=== PATIENT | female | born 1995 | race Caucasian/White ===

== ENCOUNTER 2016-05-08 10:18 | Observation (INO) | payer OTHER ==
[~2016-05-08] VITALS: Ht 180.3 cm; Wt 149.2 kg
[2016-05-08 10:41] LABS: BILIRUBIN,URINE NEGATIVE (NEGATIVE); KETONES,URINE NEGATIVE (NEGATIVE); LEUKOCYTE ESTERASE ,URINE NEGATIVE (NEGATIVE); NITRITE,URINE NEGATIVE (NEGATIVE); PH,URINE 7 (5-9); PROTEIN,URINE NEGATIVE (NEGATIVE); UROBILINOGEN,URINE NORMAL (NORMAL)
[2016-05-08] MEDS ORDERED: ONDANSETRON 4 MG/2 ML (SDV) Z0FRAN IVP ONE (10:45)
[2016-05-08] MEDS ORDERED: NS IV 1000 ML 1,000 ML IV SCH (10:45)
[2016-05-08 11:05] LABS: WBC,URINE RARE /HPF
[2016-05-08] MEDS ORDERED: fentaNYL INJECTION 100 MCG/2 ML AMP IVP ONE (11:30)
[2016-05-08 11:35] LABS: BASOPHILS % (AUTO) 0 % (0-10); EOSINOPHILS % (AUTO) 0 % (0-10); LYMPHOCYTES # (AUTO) 0.2 X 10^3 (1.0-4.0); LYMPHOCYTES % (AUTO) 3 % (12-44); MEAN CORPUSCULAR HEMOGLOBIN 27 PG (25-34); MEAN CORPUSCULAR HGB CONC 32 G/DL (32-36); MEAN CORPUSCULAR VOLUME 83 FL (80-99); MEAN PLATELET VOLUME 11.2 FL (7.4-10.4); MONOCYTES # (AUTO) 0.3 X 10^3 (0.0-1.0); MONOCYTES % (AUTO) 6 % (0-12); NEUTROPHILS % (AUTO) 91 % (42-75); PLATELET COUNT 166 10^3/uL (130-400); RED BLOOD COUNT 4.78 10^6/uL (4.35-5.85); RED CELL DISTRIBUTION WIDTH 14.3 % (10.0-14.5); WHITE BLOOD COUNT 5.5 10^3/uL (4.3-11.0)
--- NOTE | 2016-05-08 11:38 | ED GU-Female ---
General Chief Complaint: Abdominal/GI Problems Stated Complaint: LOWER RIGHT SIDE/BACK PAIN VOMITING CHILLS Nursing Triage Note: c/o right lower abd pain. Onset . Vomiting and diarrhea reported. Nursing Sepsis Screen: Possible Sepsis Risk Source: patient Exam Limitations: no limitations History of Present Illness Time seen by provider: 11:38 Initial Comments 21-year-old female patient presents to the emergency department complains of right lower quadrant pain beginning . Reports today has had vomiting, soft diarrhea stool, and chills. Patient is noted to have a fever of 101.2F in the emergency department. LMP 2 months ago. Mirena placed 2 months ago. NPO since 2099 yesterday. Timing/Duration: getting worse, other (4-5 days) Severity/Quality: sharp Location: RLQ Radiation: back (mild low back cramping) Activities at Onset: none Prior Genitourinary Problems: none Sexual [place] History: less than 2 months ago, single partner Modifying Factors: Worsens With Eating, Worsens With Movement, Worsens With Palpation Allergies and Home Medications Allergies Coded Allergies: No Known Drug Allergies (Unverified , 05/08/16) Home Medications Alprazolam 0.25 Mg Tablet, 0.25 MG PO TID PRN for ANXIETY, (Reported) Biotin 1,000 Mcg Tablet, 1,000 MCG PO DAILY, (Reported) Buspirone HCl 5 Mg Tablet, 10 MG PO HS, (Reported) TAKES 2 (5MG) TABLET Buspirone HCl 5 Mg Tablet, 5 MG PO DAILY, (Reported) Cholecalciferol (Vitamin D3) 1,000 Unit Tablet, 1,000 UNIT PO DAILY, (Reported) Ibuprofen 600 Mg Tablet, 600 MG PO Q6H PRN for PAIN, #40 Prescribed by: MIKAYLA ALEXIS on 05/09/16 0907 Levothyroxine Sodium 25 Mcg Tablet, 25 MCG PO HS, (Reported) Liraglutide 3 Mg/0.5 Ml Pen.injctr, 1.2 MG SC DAILY, (Reported) Magnesium Oxide 400 Mg Tablet, 400 MG PO DAILY, (Reported) Metronidazole 500 Mg Tablet, 500 MG PO BID for 5 Days, #10 Prescribed by: MIKAYLA ALEXIS on 05/09/16 09 Multivit with Calcium,Iron,Min 1 Each Tablet, 1 TAB PO DAILY, (Reported) Constitutional: chills, fever, malaise EENTM: no symptoms reported Respiratory: no symptoms reported Cardiovascular: no symptoms reported Gastrointestinal: RLQ, see HPI, abdominal pain (RLQ), No constipation, diarrhea (soft stools. ), No hematemesis, loss of appetite, No melena, nausea, vomiting Genitourinary: denies burning, denies discharge, denies dysuria, denies frequency, denies flank pain, denies hematuria, denies pain : No Musculoskeletal: see HPI, back pain Skin: no symptoms reported Psychiatric/Neurological: No Symptoms Reported All Other Systemes Reviewed Negative Unless Noted: Yes (Negative excepted noted.) Past [place]ask-Lfphzk Hx Patient Social History Recent Foreign Travel: No Contact w/Someone Who Travel: No Recent Infectious Disease Expo: No Surgeries HX Surgeries: No Respiratory Hx Respiratory Disorders: No Neurological Hx Neurological Disorders: No Reproductive System : No Hx Reproductive Disorders: Yes (PCOS) Female Reproductive Disorders: Polycystic Ovarian Dis Genitourinary Hx Genitourinary Disorders: No Gastrointestinal Hx Gastrointestinal Disorders: No Musculoskeletal Hx Musculoskeletal Disorders: No Endocrine Hx Endocrine Disorders: No Reviewed Nursing Assessment Reviewed/Agree w Nursing PMH: Yes Family Medical History Significant Family History: No Pertinent Family Hx Physical Exam Vital Signs Vital Sign - Last 12Hours 05/08/16 10:42 Temp 101.2 Pulse 112 Resp 18 B/P (MAP) 103/57 Pulse Ox 96 O2 Delivery Room Air Capillary Refill : Less Than 3 Seconds General Appearance: WD/WN, no apparent distress Cardiovascular: normal peripheral pulses, regular rate, rhythm, no murmur Respiratory: lungs clear, normal breath sounds, no respiratory distress Gastrointestinal: normal bowel sounds, soft, no organomegaly, No distended, guarding (RLQ), No rebound, tenderness (RLQ), No mass, other ((+) rovsing sign.) Back: normal inspection, no CVA tenderness Extremities: no pedal edema, normal capillary refill Neurologic/Psychiatric: alert, normal mood/affect, oriented x 3 Skin: normal color, warm/dry Focused Exam Lactic Acid Level Laboratory Tests Test 05/08/16 13:47 Lactic Acid Level 1.04 MMOL/L (0.50-2.00) Progress/Results/Core Measures Results/Orders Lab Results Laboratory Tests Test 05/08/16 10:03 05/08/16 11:28 05/08/16 13:47 05/08/16 15:15 Range/Units Urine Color YELLOW Urine Clarity SLIGHTLY CLOUDY Urine pH 7 5-9 Urine Specific [place] 1.005 L 1.016-1.022 Urine Protein NEGATIVE NEGATIVE Urine Glucose (UA) NEGATIVE NEGATIVE Urine Ketones NEGATIVE NEGATIVE Urine Nitrite NEGATIVE NEGATIVE Urine Bilirubin NEGATIVE NEGATIVE Urine Urobilinogen NORMAL NORMAL MG/DL Urine Leukocyte Esterase NEGATIVE NEGATIVE Urine RBC (Auto) NEGATIVE NEGATIVE Urine RBC NONE /HPF Urine WBC RARE /HPF Urine Squamous Epithelial Cells 2-5 /HPF Urine Crystals NONE /LPF Urine Bacteria TRACE /HPF Urine Casts NONE /LPF Urine Mucus NEGATIVE /LPF Urine Culture Indicated NO Urine Test NEGATIVE NEGATIVE White Blood Count 5.5 4.3-11.0 10^3/uL Red Blood Count 4.78 4.35-5.85 10^6/uL Hemoglobin 12.9 11.5-16.0 G/DL Hematocrit 40 35-52 % Mean Corpuscular Volume 83 80-99 FL Mean Corpuscular Hemoglobin 27 25-34 PG Mean Corpuscular Hemoglobin Concent 32 32-36 G/DL Red Cell Distribution Width 14.3 10.0-14.5 % Platelet Count 166 130-400 10^3/uL Mean Platelet Volume 11.2 H 7.4-10.4 FL Neutrophils (%) (Auto) 91 H 42-75 % Lymphocytes (%) (Auto) 3 L 12-44 % Monocytes (%) (Auto) 6 0-12 % Eosinophils (%) (Auto) 0 0-10 % Basophils (%) (Auto) 0 0-10 % Neutrophils # (Auto) 5.0 1.8-7.8 X 10^3 Lymphocytes # (Auto) 0.2 L 1.0-4.0 X 10^3 Monocytes # (Auto) 0.3 0.0-1.0 X 10^3 Eosinophils # (Auto) 0.0 0.0-0.3 10^3/uL Basophils # (Auto) 0.0 0.0-0.1 10^3/uL Neutrophils % (Manual) 87 % Lymphocytes % (Manual) 5 % Monocytes % (Manual) 5 % Eosinophils % (Manual) 0 % Basophils % (Manual) 0 % Band Neutrophils 3 % Blood Morphology Comment NORMAL Sodium Level 136 135-145 MMOL/L Potassium Level 3.7 3.6-5.0 MMOL/L Chloride Level 108 H 98-107 MMOL/L Carbon Dioxide Level 20 L 21-32 MMOL/L Anion Gap 8 5-14 MMOL/L Blood Urea Nitrogen 12 7-18 MG/DL Creatinine 0.91 0.60-1.30 MG/DL Estimat Glomerular Filtration Rate > 60 BUN/Creatinine Ratio 13 Glucose Level 107 H 70-105 MG/DL Calcium Level 8.7 8.5-10.1 MG/DL Total Bilirubin 0.6 0.1-1.0 MG/DL Aspartate Amino Transf (AST/SGOT) 34 5-34 U/L Alanine Aminotransferase (ALT/SGPT) 49 0-55 U/L Alkaline Phosphatase 59 40-136 U/L Total Protein 6.6 6.4-8.2 G/DL Albumin 4.0 3.2-4.5 G/DL Lactic Acid Level 1.04 0.50-2.00 MMOL/L Micro Results Microbiology 05/08/16 Genital Culture, Resulted Pending 05/08/16 Wet Prep - Final, Resulted 05/08/16 Influenza Types A,B Antigen (KINJAL) - Final, Complete My Orders Orders - LESLIE BLACK Ct Abd/Pelv W (Appendicitis) (05/08/16 11:50) Iohexol Injection (Omnipaque 350 Mg/Ml 1 (05/08/16 12:00) Sodium Chloride Flush (Catheter Flush Sy (05/08/16 12:00) Ns (Ivpb) (Sodium Chloride 0.9% Ivpb Bag (05/08/16 12:00) Ketorolac Injection (Toradol Injection) (05/08/16 13:25) Ns Iv 1000 Ml (Sodium Chloride 0.9%) (05/08/16 13:25) Wet Prep (05/08/16 13:25) Neisseria Gonorrhea Dna (05/08/16 13:25) Chlamydia Dna (05/08/16 13:25) Genital Culture (05/08/16 13:25) Lactic Acid Analyzer (05/08/16 13:27) Blood Culture (05/08/16 13:27) Influenza A And B Antigens (05/08/16 13:28) Chest Pa/Lat (2 View) (05/08/16 13:28) Fentanyl Injection (Sublimaze Injection (05/08/16 13:39) Us Non Ob Pelvis Comp/Transvag (05/08/16 13:25) Medications Given in ED Current Medications Medications Dose Ordered Sig/Graham Route Start Time Stop Time Status Last Admin Dose Admin Fentanyl Citrate 75 mcg ONCE ONCE IVP 05/08/16 11:30 05/08/16 11:31 DC 05/08/16 11:32 75 MCG Iohexol 100 ml ONCE ONCE IV 05/08/16 12:00 05/08/16 12:01 DC 05/08/16 12:13 100 ML Ondansetron HCl 8 mg ONCE ONCE IVP 05/08/16 10:45 05/08/16 10:46 DC 05/08/16 11:10 8 MG Sodium Chloride 100 ml ONCE ONCE IV 05/08/16 12:00 05/08/16 12:01 DC 05/08/16 12:13 80 ML Sodium Chloride 1,000 ml @ 0 mls/hr Q0M ONCE IV 05/08/16 13:25 05/08/16 13:28 DC 05/08/16 14:09 0 MLS/HR Vital Signs/I&O Vital Sign - Last 12Hours 05/08/16 05/08/16 05/08/16 05/08/16 10:42 11:32 13:44 13:52 Temp 101.2 101.2 101.2 101.2 Pulse 112 Resp 18 B/P (MAP) 103/57 Pulse Ox 96 O2 Delivery Room Air Blood Pressure Mean: 72 Diagnostic Imaging Diagonstic Imaging: CT Plain Films/CT/US/NM/MRI: abdomen, pelvis Comments FINDINGS: The uterus is 6.9 x 4.6 x 3.7 cm. The endometrial stripe is 1 cm in thickness. There is increased vascularity seen with color Doppler in the endometrium. The endometrial thickness is 1 cm which is within normal limits for the patient's age. However, the endometrium appears to be thinner in the lower body and lower uterine segment. IUD is seen in good position. In the right adnexa, there is a 3.4 x 2.9 x 2.4 from cm cystic lesion with a hypoechoic area occupying a small portion of it without internal vascularity likely related to a hemorrhagic cyst with a retracted clot. Surrounding ovarian tissue with overall measurements of 5 x 3.4 x 3.7 CM is seen with internal vascularity demonstrated in the surrounding ovarian tissue with arterial and venous waveforms demonstrated. The left ovary is obscured by bowel gas. IMPRESSION: 1. A 3.4 cm right adnexal lesion is probably a hemorrhagic cyst with an internal clot. 2. Increased vascularity within the endometrial cavity without obvious underlying lesion. The endometrium however appears thinner in the lower uterine segment and an underlying polyp, hyperplasia or endometrial carcinoma is not excluded. The findings were discussed with LITTLE Luna , at the time of dictation by Dr. Monsalve. Dictated on workstation # [id number] Reviewed: Reviewed by Me (radiology report reviewed by me. ) Diagonstic Imaging: Ultrasound Plain Films/CT/US/NM/MRI: pelvis Comments FINDINGS: The uterus is 6.9 x 4.6 x 3.7 cm. The endometrial stripe is 1 cm in thickness. There is increased vascularity seen with color Doppler in the endometrium. The endometrial thickness is 1 cm which is within normal limits for the patient's age. However, the endometrium appears to be thinner in the lower body and lower uterine segment. IUD is seen in good position. In the right adnexa, there is a 3.4 x 2.9 x 2.4 from cm cystic lesion with a hypoechoic area occupying a small portion of it without internal vascularity likely related to a hemorrhagic cyst with a retracted clot. Surrounding ovarian tissue with overall measurements of 5 x 3.4 x 3.7 CM is seen with internal vascularity demonstrated in the surrounding ovarian tissue with arterial and venous waveforms demonstrated. The left ovary is obscured by bowel gas. IMPRESSION: 1. A 3.4 cm right adnexal lesion is probably a hemorrhagic cyst with an internal clot. 2. Increased vascularity within the endometrial cavity without obvious underlying lesion. The endometrium however appears thinner in the lower uterine segment and an underlying polyp, hyperplasia or endometrial carcinoma is not excluded. The findings were discussed with LITTLE Luna , at the time of dictation by Dr. Monsalve. Dictated by: Dictated on workstation # [id number] Reviewed: Reviewed by Me (radiology report reviewed by me) Diagonstic Imaging: Xray Plain Films/CT/US/NM/MRI: chest Comments FINDINGS: Frontal and lateral views of the chest demonstrate normal heart size and pulmonary vascularity. The lungs are clear. There are no signs of infiltrate , pleural effusions or pneumothoraces. The visualized osseous structures show no acute abnormalities. IMPRESSION: 1. No acute process. No signs of infiltrates , effusions or pneumothoraces. Dictated by: Dictated on workstation # [id number] Reviewed: Reviewed by Me (radiology report reviewed by me) Departure Communication Time/Spoke to Admitting Phy: 15:[address] Mikayla alexis accepts patient to her service for repeat labs in the a.m., pain control, IV fluids, and further evaluation. Progress Notes Patient seen and evaluated. Patient reports continued right lower quadrant pain following IV fluids and pain medication. Patient does report nausea has improved. CT scan findings as well as laboratory findings were discussed with the patient and family. Patient is noted to have increase in temperature to 102.9F. Her for pelvic ultrasound, influenza, chest x-ray, and pelvic exam performed. On pelvic exam patient shows normal external genitalia. Cervix is friable with slight white discharge. IUD wires are noted. No masses or lesions noted. Tender right adnexa. Patient case was discussed with Dr. Mikayla yaness patient to her service for pain control, IV fluids, and further evaluation. Plan for admission was discussed with the patient and family. Patient does report findings on ultrasound of increased vascularity of the endometrium was seen on a previous ultrasound at [facility]. Patient states she was placed on hormones with improvement in vaginal bleeding in symptoms. Patient states he did not do a uterine biopsy as they felt that the hormones had resolved to the thickened endometrium. IUD was placed 2 months ago. Patient and family all voiced understanding and agree with plan for admission. Patient case discussed with Thiago Baez, he agrees with the plan of care. Impression Impression: Primary Impression: Intractable right lower quadrant abdominal pain Additional Impressions: Nausea and vomiting Qualified Codes: R11.2 - Nausea with vomiting, unspecified Hemorrhagic ovarian cyst Bacterial vaginosis Fever Qualified Codes: R50.9 - Fever, unspecified Disposition: ADMITTED INPATIENT Condition: Stable Decision to Admit Reason: Admit from ER (General) Decision to Admit/Date: May 08, 2016 Time/Decision to Admit Time: 15:39 Departure-Patient Inst. Referrals: ENRIKE SALAS DO (PCP/Family) Primary Care Physician Scripts Ibuprofen (Ibuprofen) 600 Mg Tablet 600 MG PO Q6H Y for PAIN, #40 TAB Prov: MIKAYLA ALEXIS DO 05/09/16 Metronidazole (Flagyl) 500 Mg Tablet 500 MG PO BID for 5 Days, #10 TAB Prov: MIKAYLA ALEXIS DO 05/09/16 LESLIE BLACK May 08, 2016 11:38
[2016-05-08 11:55] LABS: ALANINE AMINOTRANSFERASE 49 U/L (0-55); ANION GAP 8 MMOL/L (5-14); ASPARTATE AMINO TRANSFERASE 34 U/L (5-34); BILIRUBIN,TOTAL 0.6 MG/DL (0.1-1.0); BLOOD UREA NITROGEN 12 MG/DL (7-18); BUN/CREATININE RATIO 13; CALCIUM 8.7 MG/DL (8.5-10.1); CARBON DIOXIDE 20 MMOL/L (21-32); CHLORIDE 108 MMOL/L (98-107); CREATININE SERUM 0.91 MG/DL (0.60-1.30); GFR ESTIMATED > 60; GLUCOSE 107 MG/DL (70-105); POTASSIUM 3.7 MMOL/L (3.6-5.0); SODIUM 136 MMOL/L (135-145); TOTAL PROTEIN 6.6 G/DL (6.4-8.2)
[2016-05-08 11:56] LABS: BAND NEUTROPHILS 3 %; BASOPHILS % (MANUAL) 0 %; EOSINOPHILS % (MANUAL) 0 %; LYMPHOCYTES % (MANUAL) 5 %; NEUTROPHILS % (MANUAL) 87 %
[2016-05-08] MEDS ORDERED: NS 100 ML (IVPB) BAG IV ONE (12:00)
[2016-05-08] MEDS ORDERED: IOHEXOL 350 MG/ML 100 ML (OMNIPAQUE 350) VIAL IV ONE (12:00)
[2016-05-08] MEDS ORDERED: CATHETER FLUSH 10 ML SYR IV PRN (12:00)
--- NOTE | 2016-05-08 12:39 | Diagnostic Imaging Report ---
PROCEDURE: CT abdomen and pelvis with contrast, rule out appendicitis. TECHNIQUE: Multiple contiguous axial images were obtained through the abdomen and pelvis after the administration of intravenous contrast. INDICATION: Right lower quadrant pain began recently worsening in severity accompanied by fever and nausea. Tubular structure with a diameter of 5 mm seen best on axial image 111 is believed to reflect the normal appendix. No pericecal inflammatory process. The right adnexal cyst the larger more medial measuring a diameter of 2.8 cm and smaller more lateral cyst with a diameter of 1.8 cm present. There is an IUD device without evidence of uterine perforation. The left adnexa appear normal. Urinary bladder unremarkable. There is no ascites, abscess, hematoma or other acute fluid collection. There is no hydronephrosis. Ureters patent and unobstructed throughout their length. There is no bowel or biliary obstruction. Liver, gallbladder, spleen, adrenals and pancreas are unremarkable. Aortoiliac and mesenteric vessels patent and nonaneurysmal. IMPRESSION: Normal appendix believe identified right adnexal cyst with an indwelling IUD. No obstructive phenomena, abscess, ascites or focal inflammatory process identified. Dictated by: Dictated on workstation # [id number]
[2016-05-08] MEDS ORDERED: KETOROLAC 30 MG/ML VIAL IVP STA (13:25)
[2016-05-08] MEDS ORDERED: NS IV 1000 ML 1,000 ML IV ONE (13:25)
[2016-05-08] MEDS ORDERED: fentaNYL INJECTION 100 MCG/2 ML AMP IVP STA (13:39)
--- NOTE | 2016-05-08 14:57 | Diagnostic Imaging Report ---
INDICATION: Fever. Abdominal pain. COMPARISON: None FINDINGS: Frontal and lateral views of the chest demonstrate normal heart size and pulmonary vascularity. The lungs are clear. There are no signs of infiltrate, pleural effusions or pneumothoraces. The visualized osseous structures show no acute abnormalities. IMPRESSION: 1. No acute process. No signs of infiltrates, effusions or pneumothoraces. Dictated by: Dictated on workstation # [id number]
--- NOTE | 2016-05-08 15:22 | Diagnostic Imaging Report ---
EXAM: Transabdominal and transvaginal pelvic ultrasound. INDICATION: Pelvic pain. FINDINGS: The uterus is 6.9 x 4.6 x 3.7 cm. The endometrial stripe is 1 cm in thickness. There is increased vascularity seen with color Doppler in the endometrium. The endometrial thickness is 1 cm which is within normal limits for the patient's age. However, the endometrium appears to be thinner in the lower body and lower uterine segment. IUD is seen in good position. In the right adnexa, there is a 3.4 x 2.9 x 2.4 from cm cystic lesion with a hypoechoic area occupying a small portion of it without internal vascularity likely related to a hemorrhagic cyst with a retracted clot. Surrounding ovarian tissue with overall measurements of 5 x 3.4 x 3.7 CM is seen with internal vascularity demonstrated in the surrounding ovarian tissue with arterial and venous waveforms demonstrated. The left ovary is obscured by bowel gas. IMPRESSION: 1. A 3.4 cm right adnexal lesion is probably a hemorrhagic cyst with an internal clot. 2. Increased vascularity within the endometrial cavity without obvious underlying lesion. The endometrium however appears thinner in the lower uterine segment and an underlying polyp, hyperplasia or endometrial carcinoma is not excluded. The findings were discussed with LITTLE Luna, at the time of dictation by Dr. Monsalve. Dictated by: Dictated on workstation # [id number]
[2016-05-08] MEDS ORDERED: metroNIDAZOLE 500 MG (FLAGYL) TAB PO ONE (16:15)
[2016-05-08 17:05] VITALS: BP 126/80
--- NOTE | 2016-05-08 17:12 | History & Physicial ---
History of Present Illness History of Present Illness Reason for visit/HPI Right lower quadrant pain, fever Patient reports acute onset of pain starting . Now with vomiting and diarrhea and fever in ED of 101.2. US done to rule out appendicitis and found to have right ovarian cyst. Small but possibly hemorrhagic. (3x2 cm). Had IUD placed by Dr. Lyles [address]. LMP 2 months ago (no menses since placement of IUD). Vital Signs 05/08/16 05/08/16 10:42 13:52 Temp 101.2 Pulse 112 Resp 18 B/P (MAP) 103/57 Pulse Ox 96 O2 Delivery Room Air Laboratory Tests Test 05/08/16 10:03 05/08/16 11:28 05/08/16 13:47 05/08/16 15:15 Range/Units Urine Color YELLOW Urine Clarity SLIGHTLY CLOUDY Urine pH 7 5-9 Urine Specific [place] 1.005 L 1.016-1.022 Urine Protein NEGATIVE NEGATIVE Urine Glucose (UA) NEGATIVE NEGATIVE Urine Ketones NEGATIVE NEGATIVE Urine Nitrite NEGATIVE NEGATIVE Urine Bilirubin NEGATIVE NEGATIVE Urine Urobilinogen NORMAL NORMAL MG/DL Urine Leukocyte Esterase NEGATIVE NEGATIVE Urine RBC (Auto) NEGATIVE NEGATIVE Urine RBC NONE /HPF Urine WBC RARE /HPF Urine Squamous Epithelial Cells 2-5 /HPF Urine Crystals NONE /LPF Urine Bacteria TRACE /HPF Urine Casts NONE /LPF Urine Mucus NEGATIVE /LPF Urine Culture Indicated NO Urine Test NEGATIVE NEGATIVE White Blood Count 5.5 4.3-11.0 10^3/uL Red Blood Count 4.78 4.35-5.85 10^6/uL Hemoglobin 12.9 11.5-16.0 G/DL Hematocrit 40 35-52 % Mean Corpuscular Volume 83 80-99 FL Mean Corpuscular Hemoglobin 27 25-34 PG Mean Corpuscular Hemoglobin Concent 32 32-36 G/DL Red Cell Distribution Width 14.3 10.0-14.5 % Platelet Count 166 130-400 10^3/uL Mean Platelet Volume 11.2 H 7.4-10.4 FL Neutrophils (%) (Auto) 91 H 42-75 % Lymphocytes (%) (Auto) 3 L 12-44 % Monocytes (%) (Auto) 6 0-12 % Eosinophils (%) (Auto) 0 0-10 % Basophils (%) (Auto) 0 0-10 % Neutrophils # (Auto) 5.0 1.8-7.8 X 10^3 Lymphocytes # (Auto) 0.2 L 1.0-4.0 X 10^3 Monocytes # (Auto) 0.3 0.0-1.0 X 10^3 Eosinophils # (Auto) 0.0 0.0-0.3 10^3/uL Basophils # (Auto) 0.0 0.0-0.1 10^3/uL Neutrophils % (Manual) 87 % Lymphocytes % (Manual) 5 % Monocytes % (Manual) 5 % Eosinophils % (Manual) 0 % Basophils % (Manual) 0 % Band Neutrophils 3 % Blood Morphology Comment NORMAL Sodium Level 136 135-145 MMOL/L Potassium Level 3.7 3.6-5.0 MMOL/L Chloride Level 108 H 98-107 MMOL/L Carbon Dioxide Level 20 L 21-32 MMOL/L Anion Gap 8 5-14 MMOL/L Blood Urea Nitrogen 12 7-18 MG/DL Creatinine 0.91 0.60-1.30 MG/DL Estimat Glomerular Filtration Rate > 60 BUN/Creatinine Ratio 13 Glucose Level 107 H 70-105 MG/DL Calcium Level 8.7 8.5-10.1 MG/DL Total Bilirubin 0.6 0.1-1.0 MG/DL Aspartate Amino Transf (AST/SGOT) 34 5-34 U/L Alanine Aminotransferase (ALT/SGPT) 49 0-55 U/L Alkaline Phosphatase 59 40-136 U/L Total Protein 6.6 6.4-8.2 G/DL Albumin 4.0 3.2-4.5 G/DL Lactic Acid Level 1.04 0.50-2.00 MMOL/L Current Medications Medications Dose Ordered Sig/Graham Route Start Time Stop Time Status Last Admin Dose Admin Fentanyl Citrate 75 mcg ONCE ONCE IVP 05/08/16 11:30 05/08/16 11:31 DC 05/08/16 11:32 75 MCG Iohexol 100 ml ONCE ONCE IV 05/08/16 12:00 05/08/16 12:01 DC 05/08/16 12:13 100 ML Metronidazole 500 mg ONCE ONCE PO 05/08/16 16:15 05/08/16 16:16 DC 05/08/16 16:53 500 MG Ondansetron HCl 8 mg ONCE ONCE IVP 05/08/16 10:45 05/08/16 10:46 DC 05/08/16 11:10 8 MG Sodium Chloride 100 ml ONCE ONCE IV 05/08/16 12:00 05/08/16 12:01 DC 05/08/16 12:13 80 ML Sodium Chloride 1,000 ml @ 0 mls/hr Q0M ONCE IV 05/08/16 13:25 05/08/16 13:28 DC 05/08/16 14:09 0 MLS/HR NAME: [facility] REC#: [id number] PHYSICIAN: LESLIE BLACK CC: LC SANCHEZ; LESLIE BLACK Page 1 of 1 RADIOLOGY REPORT VIA [facility]. [place], [place] CC: LC SANCHEZ; LESLIE BLACK Page 1 of 1 RADIOLOGY REPORT INDICATION: Fever. Abdominal pain. COMPARISON: None FINDINGS: Frontal and lateral views of the chest demonstrate normal heart size and pulmonary vascularity. The lungs are clear. There are no signs of infiltrate, pleural effusions or pneumothoraces. The visualized osseous structures show no acute abnormalities. IMPRESSION: 1. No acute process. No signs of infiltrates, effusions or pneumothoraces. Dictated by: Dictated on workstation # [id number] Dict: 05/08/16 1455 Trans: 05/08/16 1700 [place] [id number] Interpreted by: LC SANCHEZ Electronically signed by:LC SANCHEZ 05/08/16 1700 Date of Exam: 05/08/16 US NON OB PELVIS COMP/TRANSVAG EXAM: Transabdominal and transvaginal pelvic ultrasound. INDICATION: Pelvic pain. FINDINGS: The uterus is 6.9 x 4.6 x 3.7 cm. The endometrial stripe is 1 cm in thickness. There is increased vascularity seen with color Doppler in the endometrium. The endometrial thickness is 1 cm which is within normal limits for the patient's age. However, the endometrium appears to be thinner in the lower body and lower uterine segment. IUD is seen in good position. In the right adnexa, there is a 3.4 x 2.9 x 2.4 from cm cystic lesion with a hypoechoic area occupying a small portion of it without internal vascularity likely related to a hemorrhagic cyst with a retracted clot. Surrounding ovarian tissue with overall measurements of 5 x 3.4 x 3.7 CM is seen with internal vascularity demonstrated in the surrounding ovarian tissue with arterial and venous waveforms demonstrated. The left ovary is obscured by bowel gas. IMPRESSION: 1. A 3.4 cm right adnexal lesion is probably a hemorrhagic cyst with an internal clot. 2. Increased vascularity within the endometrial cavity without obvious underlying lesion. The endometrium however appears thinner in the lower uterine segment and an underlying polyp, hyperplasia or endometrial carcinoma is not excluded. The findings were discussed with LITTLE Luna, at the time of dictation by Dr. Monsalve. Dictated by: Dictated on workstation # [id number] Dict: 05/08/16 1443 Trans: 05/08/16 1559 [facility] [id number] Interpreted by: AMANDA MONSALVE MD Electronically signed by:AMANDA MONSALVE MD 05/08/16 1559 NAME: [facility] REC#: [id number] PHYSICIAN: LESLIE BLACK CC: CORNEL JOHNSON; LESLIE BLACK Page 2 of 2 RADIOLOGY REPORT VIA [facility]. [place], [place] CC: CORNEL JOHNSON; LESLIE BLACK Page 1 of 1 RADIOLOGY REPORT Date of Exam: 05/08/16 CT ABD/PELV W (APPENDICITIS) PROCEDURE: CT abdomen and pelvis with contrast, rule out appendicitis. TECHNIQUE: Multiple contiguous axial images were obtained through the abdomen and pelvis after the administration of intravenous contrast. INDICATION: Right lower quadrant pain began recently worsening in severity accompanied by fever and nausea. Tubular structure with a diameter of 5 mm seen best on axial image 111 is believed to reflect the normal appendix. No pericecal inflammatory process. The right adnexal cyst the larger more medial measuring a diameter of 2.8 cm and smaller more lateral cyst with a diameter of 1.8 cm present. There is an IUD device without evidence of uterine perforation. The left adnexa appear normal. Urinary bladder unremarkable. There is no ascites, abscess, hematoma or other acute fluid collection. There is no hydronephrosis. Ureters patent and unobstructed throughout their length. There is no bowel or biliary obstruction. Liver, gallbladder, spleen, adrenals and pancreas are unremarkable. Aortoiliac and mesenteric vessels patent and nonaneurysmal. IMPRESSION: Normal appendix believe identified right adnexal cyst with an indwelling IUD. No obstructive phenomena, abscess, ascites or focal inflammatory process identified. Dictated by: Dictated on workstation # [id number] Dict: 05/08/16 1232 Trans: 05/08/16 1701 [place] [id number] Interpreted by: CORNEL JOHNSON Electronically signed by:CORNEL JOHNSON 05/08/16 1701 Date of Admission May 08, 2016 at 16:03 I consulted on this patient on 05/08/16 17:10 Attending Physician Derick Smith DO Admitting Physician Derick Smith DO Consult Allergies and Home Medications Allergies Coded Allergies: No Known Drug Allergies (Unverified , 05/08/16) Home Medications Biotin 1,000 Mcg Tablet, 1,000 MCG PO DAILY, (Reported) Cholecalciferol (Vitamin D3) 1,000 Unit Tablet, 1,000 UNIT PO DAILY, (Reported) Levothyroxine Sodium 25 Mcg Tablet, 25 MCG PO HS, (Reported) Multivit with Calcium,Iron,Min 1 Each Tablet, 1 TAB PO DAILY, (Reported) Past Avympbq-Grephp-Oinizx Hx Patient Social History Marrital Status: Number of Children: 0 Number of living children: 0 Alcohol Use: Denies Use Recreational Drug Use: No Smoking Status: Never a Smoker 2nd Hand Smoke Exposure: No Recent Foreign Travel: No Contact w/other who traveled: No Recent Hopitalizations: No Recent Infectious Disease Expo: No Surgeries HX Surgeries: No Respiratory Hx Respiratory Disorders: No Cardiovascular Hx Cardiovascular Disorders: No Neurological Hx Neurological Disorders: No Reproductive System : No Hx Reproductive Disorders: Yes (PCOS) Female Reproductive Disorders: Polycystic Ovarian Dis 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 (Mirena placed 01/26) Genitourinary Hx Genitourinary Disorders: No Gastrointestinal Hx Gastrointestinal Disorders: No Musculoskeletal Hx Musculoskeletal Disorders: No Endocrine Hx Endocrine Disorders: No HEENT HX ENT Disorders: No Cancer Hx Cancer: No Psychosocial Hx Psychiatric Problems: No Integumentary HX Skin/Integumentary Disorder: No Blood Transfusions Hx Blood Disorders: No Reviewed Nursing Assessment Reviewed/Agree w Nursing PMH: Yes Family Medical History Significant Family History: No Pertinent Family Hx Constitutional: no symptoms reported EENTM: no symptoms reported Respiratory: no symptoms reported Cardiovascular: no symptoms reported Gastrointestinal: RLQ, diarrhea (loose stool x 1), nausea, vomiting (earlier today) Genitourinary: no symptoms reported Musculoskeletal: no symptoms reported Skin: no symptoms reported Psychiatric/Neurological: No Symptoms Reported Physical Exam Vital Signs Capillary Refill : Less Than 3 Seconds General Appearance: No Apparent Distress Neck: Normal Inspection Respiratory: Lungs Clear, Normal Breath Sounds Cardiovascular: Regular Rate, Rhythm Gastrointestinal: Normal Bowel Sounds, Non Tender, Soft Genital/Rectal: Normal Genital Exam Back: No CVA Tenderness Assessment/Plan Admission Diagnosis 1. Right lower quadrant pain 2. Fever Suspect viral etiology with incidental ovulatory cyst. Monitor overnight. Rocephin and Toradol started in The ED and will continue to monitor. JESS ALEXIS DO May 08, 2016 17:12
[2016-05-08] MEDS: KETOROLAC 30 MG/ML VIAL IVP SCH ×2 (17:15→23:15)
[2016-05-08] MEDS ORDERED: ACETAMINOPHEN 500 MG TAB (TYLENOL) PO PRN ×2 (17:15→17:45)
[2016-05-08] MEDS ORDERED: ONDANSETRON 4 MG/2 ML (SDV) Z0FRAN IV PRN (17:30)
[2016-05-08] MEDS ORDERED: LIDOCAINE 1% INJ 20 ML (XYLOCAINE) VIAL INJ NR (17:30)
[2016-05-08] MEDS ORDERED: cefTRIAXone 1 GM (ROCEPHIN) VIAL IM NR (17:30)
[2016-05-08] MEDS: NS W/KCL 20 MEQ/L 1,000 ML IV SCH (17:43)
[2016-05-08] MEDS: DOXYCYCLINE 100 MG (VIBRAMYCIN) TABLET PO SCH (17:43)
[2016-05-08] MEDS ORDERED: PROMETHAZINE INJ 25 MG/ML (PHENERGAN) AMP IV PRN (17:45)
[2016-05-08] MEDS ORDERED: KETOROLAC 30 MG/ML VIAL IV PRN (17:45)
[2016-05-08] MEDS ORDERED: morphine INJ 4 MG/ML 1 ML (VIAL/SYRINGE) IV PRN (17:45)
[2016-05-08] MEDS ORDERED: cefTRIAXone 1 GM/NS 50 ML IVPB IV NR ×2 (17:45)
[2016-05-08] MEDS ORDERED: FLU TRIvalent (5 YOA+) 2016-17 (AFLURIA) 0.5 ML IM ONE (18:15)
[2016-05-08 19:15] VITALS: BP 109/69
[2016-05-08] MEDS: FAMOTIDINE 20MG/2ML IV (PEPCID) IV SCH (20:10)
[2016-05-08] MEDS: metroNIDAZOLE 500MG/100ML IVPB 100 ML IV SCH (21:19)
[2016-05-09] VITALS: BP 100/56
[2016-05-09] MEDS: NS W/KCL 20 MEQ/L 1,000 ML IV SCH ×2 (00:23→06:45)
[2016-05-09 04:00] VITALS: BP 136/65
[2016-05-09] MEDS: KETOROLAC 30 MG/ML VIAL IVP SCH (05:29)
[2016-05-09] MEDS: metroNIDAZOLE 500MG/100ML IVPB 100 ML IV SCH (05:29)
[2016-05-09 06:08] LABS: BASOPHILS % (AUTO) 1 % (0-10); EOSINOPHILS % (AUTO) 1 % (0-10); LYMPHOCYTES # (AUTO) 0.4 X 10^3 (1.0-4.0); LYMPHOCYTES % (AUTO) 25 % (12-44); MEAN CORPUSCULAR HEMOGLOBIN 27 PG (25-34); MEAN CORPUSCULAR HGB CONC 31 G/DL (32-36); MEAN CORPUSCULAR VOLUME 86 FL (80-99); MEAN PLATELET VOLUME 12.1 FL (7.4-10.4); MONOCYTES # (AUTO) 0.3 X 10^3 (0.0-1.0); MONOCYTES % (AUTO) 17 % (0-12); NEUTROPHILS # (AUTO) 0.9 X 10^3 (1.8-7.8); NEUTROPHILS % (AUTO) 56 % (42-75); PLATELET COUNT 105 10^3/uL (130-400); RED CELL DISTRIBUTION WIDTH 14.5 % (10.0-14.5); WHITE BLOOD COUNT 1.6 10^3/uL (4.3-11.0)
[2016-05-09] MEDS: DOXYCYCLINE 100 MG (VIBRAMYCIN) TABLET PO SCH (06:44)
[2016-05-09 06:45] LABS: ALANINE AMINOTRANSFERASE 37 U/L (0-55); ANION GAP 5 MMOL/L (5-14); ASPARTATE AMINO TRANSFERASE 28 U/L (5-34); BILIRUBIN,TOTAL 0.4 MG/DL (0.1-1.0); BLOOD UREA NITROGEN 13 MG/DL (7-18); BUN/CREATININE RATIO 16; CARBON DIOXIDE 19 MMOL/L (21-32); CHLORIDE 114 MMOL/L (98-107); CREATININE SERUM 0.82 MG/DL (0.60-1.30); GFR ESTIMATED > 60; GLUCOSE 103 MG/DL (70-105); POTASSIUM 3.9 MMOL/L (3.6-5.0); SODIUM 138 MMOL/L (135-145)
[2016-05-09 08:00] VITALS: BP 106/61
[2016-05-09] MEDS: FAMOTIDINE 20MG/2ML IV (PEPCID) IV SCH (08:18)
--- NOTE | 2016-05-09 08:34 | Progress Note-Standard ---
Standard Progress Note Progress Notes/Assess & Plan Progress/Assessment & Plan Feeling better. Afebrile Will dc home Vital Signs 05/09/16 04:00 Temp 98.6 Pulse 66 Resp 20 B/P (MAP) 136/65 Pulse Ox 96 O2 Delivery Room Air Laboratory Tests Test 05/08/16 10:03 05/08/16 11:28 05/08/16 13:47 05/08/16 15:15 Range/Units Urine Color YELLOW Urine Clarity SLIGHTLY CLOUDY Urine pH 7 5-9 Urine Specific [place] 1.005 L 1.016-1.022 Urine Protein NEGATIVE NEGATIVE Urine Glucose (UA) NEGATIVE NEGATIVE Urine Ketones NEGATIVE NEGATIVE Urine Nitrite NEGATIVE NEGATIVE Urine Bilirubin NEGATIVE NEGATIVE Urine Urobilinogen NORMAL NORMAL MG/DL Urine Leukocyte Esterase NEGATIVE NEGATIVE Urine RBC (Auto) NEGATIVE NEGATIVE Urine RBC NONE /HPF Urine WBC RARE /HPF Urine Squamous Epithelial Cells 2-5 /HPF Urine Crystals NONE /LPF Urine Bacteria TRACE /HPF Urine Casts NONE /LPF Urine Mucus NEGATIVE /LPF Urine Culture Indicated NO Urine Test NEGATIVE NEGATIVE White Blood Count 5.5 4.3-11.0 10^3/uL Red Blood Count 4.78 4.35-5.85 10^6/uL Hemoglobin 12.9 11.5-16.0 G/DL Hematocrit 40 35-52 % Mean Corpuscular Volume 83 80-99 FL Mean Corpuscular Hemoglobin 27 25-34 PG Mean Corpuscular Hemoglobin Concent 32 32-36 G/DL Red Cell Distribution Width 14.3 10.0-14.5 % Platelet Count 166 130-400 10^3/uL Mean Platelet Volume 11.2 H 7.4-10.4 FL Neutrophils (%) (Auto) 91 H 42-75 % Lymphocytes (%) (Auto) 3 L 12-44 % Monocytes (%) (Auto) 6 0-12 % Eosinophils (%) (Auto) 0 0-10 % Basophils (%) (Auto) 0 0-10 % Neutrophils # (Auto) 5.0 1.8-7.8 X 10^3 Lymphocytes # (Auto) 0.2 L 1.0-4.0 X 10^3 Monocytes # (Auto) 0.3 0.0-1.0 X 10^3 Eosinophils # (Auto) 0.0 0.0-0.3 10^3/uL Basophils # (Auto) 0.0 0.0-0.1 10^3/uL Neutrophils % (Manual) 87 % Lymphocytes % (Manual) 5 % Monocytes % (Manual) 5 % Eosinophils % (Manual) 0 % Basophils % (Manual) 0 % Band Neutrophils 3 % Blood Morphology Comment NORMAL Sodium Level 136 135-145 MMOL/L Potassium Level 3.7 3.6-5.0 MMOL/L Chloride Level 108 H 98-107 MMOL/L Carbon Dioxide Level 20 L 21-32 MMOL/L Anion Gap 8 5-14 MMOL/L Blood Urea Nitrogen 12 7-18 MG/DL Creatinine 0.91 0.60-1.30 MG/DL Estimat Glomerular Filtration Rate > 60 BUN/Creatinine Ratio 13 Glucose Level 107 H 70-105 MG/DL Calcium Level 8.7 8.5-10.1 MG/DL Total Bilirubin 0.6 0.1-1.0 MG/DL Aspartate Amino Transf (AST/SGOT) 34 5-34 U/L Alanine Aminotransferase (ALT/SGPT) 49 0-55 U/L Alkaline Phosphatase 59 40-136 U/L Total Protein 6.6 6.4-8.2 G/DL Albumin 4.0 3.2-4.5 G/DL Lactic Acid Level 1.04 0.50-2.00 MMOL/L Test 05/09/16 05:26 Range/Units White Blood Count 1.6 L 4.3-11.0 10^3/uL Red Blood Count 3.90 L 4.35-5.85 10^6/uL Hemoglobin 10.5 L 11.5-16.0 G/DL Hematocrit 34 L 35-52 % Mean Corpuscular Volume 86 80-99 FL Mean Corpuscular Hemoglobin 27 25-34 PG Mean Corpuscular Hemoglobin Concent 31 L 32-36 G/DL Red Cell Distribution Width 14.5 10.0-14.5 % Platelet Count 105 L 130-400 10^3/uL Mean Platelet Volume 12.1 H 7.4-10.4 FL Neutrophils (%) (Auto) 56 42-75 % Lymphocytes (%) (Auto) 25 12-44 % Monocytes (%) (Auto) 17 H 0-12 % Eosinophils (%) (Auto) 1 0-10 % Basophils (%) (Auto) 1 0-10 % Neutrophils # (Auto) 0.9 L 1.8-7.8 X 10^3 Lymphocytes # (Auto) 0.4 L 1.0-4.0 X 10^3 Monocytes # (Auto) 0.3 0.0-1.0 X 10^3 Eosinophils # (Auto) 0.0 0.0-0.3 10^3/uL Basophils # (Auto) 0.0 0.0-0.1 10^3/uL Sodium Level 138 135-145 MMOL/L Potassium Level 3.9 3.6-5.0 MMOL/L Chloride Level 114 H 98-107 MMOL/L Carbon Dioxide Level 19 L 21-32 MMOL/L Anion Gap 5 5-14 MMOL/L Blood Urea Nitrogen 13 7-18 MG/DL Creatinine 0.82 0.60-1.30 MG/DL Estimat Glomerular Filtration Rate > 60 BUN/Creatinine Ratio 16 Glucose Level 103 70-105 MG/DL Calcium Level 7.0 L 8.5-10.1 MG/DL Total Bilirubin 0.4 0.1-1.0 MG/DL Aspartate Amino Transf (AST/SGOT) 28 5-34 U/L Alanine Aminotransferase (ALT/SGPT) 37 0-55 U/L Alkaline Phosphatase 44 40-136 U/L Total Protein 5.0 L 6.4-8.2 G/DL Albumin 3.0 L 3.2-4.5 G/DL !. Viral gastroenteritis 2. ovulatory right ovarian cyst. Discharge. See instructions JESS ALEXIS DO May 09, 2016 08:34
--- NOTE | 2016-05-09 08:36 | Discharge Inst-Women's Service ---
Discharge Inst-Women's Serv Depart Medication/Instructions New, Converted or Re-Newed RX: Transmitted to Pharmacy Final Diagnosis viral infection Fever Hemorrhagic ovarian cyst Leukopenia Thrombocytopenia Consults/Follow Up Additional Follow Up: Yes (1 week, CBC. Call to set up appointment (patient to call) New office on the third floor) Activity Activity: Activity as Tolerated Driving Instructions: You May Drive NO SMOKING: NO SMOKING Diet Discharge Diet: No Restrictions Symptoms to Report to : Bleeding Excessive, Fever Over 101 Degrees F, Dizziness/Fainting, Nausea/Vomiting For Any Problems or Questions: Contact Your Physician JESS ALEXIS DO May 09, 2016 08:36
[2016-05-09] MEDS ORDERED: ALPR0.254 PO (08:50)
[2016-05-09] MEDS ORDERED: BUSP5TAB59 PO ×2 (08:50)
[2016-05-09] MEDS ORDERED: LIRA3PEN SC (08:50)
[2016-05-09] MEDS ORDERED: LEVO25TA5 PO (08:50)
[2016-05-09] MEDS ORDERED: MULT-141 PO (08:53)
[2016-05-09] MEDS ORDERED: MAGN400T29 PO (08:53)
[2016-05-09] MEDS ORDERED: CHOL10003 PO (08:53)
[2016-05-09] MEDS ORDERED: NFBIOT1000 PO (08:53)
[2016-05-09] MEDS ORDERED: IBUP-1773 PO (09:07)
[2016-05-09] MEDS ORDERED: METR500T PO (09:07)
[2016-05-09] MEDS ORDERED: cefTRIAXone 1 GM (ROCEPHIN) VIAL IV NR (17:30)
== END 2016-05-09 08:35 | disposition home or self-care (01) ==
LOC: DELPENDDIS → EDUNIT# 10:18 → ER 10:20 → 4TH 16:03 → UNDOADMOB 16:03 → 4TH 17:00 → UNDODISOB 05-09 11:05
PROVIDERS: ADMIT Obstetrics & Gynecology; ATTEND Internal Medicine
DX: R10.31 Right lower quadrant pain (principal); R11.2 Nausea with vomiting, unspecified; R50.9 Fever, unspecified; N76.0 Acute vaginitis; N83.201 Unspecified ovarian cyst, right side; N85.9 Noninflammatory disorder of uterus, unspecified; E11.9 Type 2 diabetes mellitus without complications; Z79.84 Long term (current) use of oral hypoglycemic drugs; Z79.899 Other long term (current) drug therapy; Z97.5 Presence of (intrauterine) contraceptive device
CPT/HCPCS: 36415; 71020; 74177; 76830; 76856; 80053; 81000; 83605; 84703; 85007; 85025; 85027; 87040; 87070; 87210; 87491; 87591; 87804; 96374; 96375; 96376; 99211; G0378

== ENCOUNTER 2016-05-28 19:19 | Inpatient (IN) | payer OTHER ==
[2016-05-28] VITALS (8 sets, daily range): BP systolic 99–140; BP diastolic 55–95
[~2016-05-28] VITALS: Ht 180.3 cm; Wt 154.2 kg
[~2016-05-28 19:19] MED LIST: ALPR0.254 PO; BUSP5TAB59 PO; CHOL10003 PO; IBUP-1773 PO; LEVO25TA5 PO; LIRA3PEN SC; MAGN400T29 PO; METR500T PO; MULT-141 PO; NFBIOT1000 PO
[2016-05-28] MEDS ORDERED: NS IV 1000 ML 1,000 ML IV STA (19:21)
[2016-05-28] MEDS ORDERED: ACTIVATED CHARCOAL/SORBITOL 50 G/240 ML BTL PO ONE (19:30)
[2016-05-28] MEDS ORDERED: ONDANSETRON 4 MG/2 ML (SDV) Z0FRAN IVP ONE (19:30)
[2016-05-28 19:47] LABS: BASOPHILS # (AUTO) 0.1 10^3/uL (0.0-0.1); BASOPHILS % (AUTO) 1 % (0-10); EOSINOPHILS # (AUTO) 0.1 10^3/uL (0.0-0.3); EOSINOPHILS % (AUTO) 1 % (0-10); LYMPHOCYTES # (AUTO) 2.8 X 10^3 (1.0-4.0); LYMPHOCYTES % (AUTO) 32 % (12-44); MEAN CORPUSCULAR HGB CONC 32 G/DL (32-36); MEAN CORPUSCULAR VOLUME 85 FL (80-99); MEAN PLATELET VOLUME 10.6 FL (7.4-10.4); MONOCYTES # (AUTO) 0.8 X 10^3 (0.0-1.0); MONOCYTES % (AUTO) 8 % (0-12); NEUTROPHILS # (AUTO) 5.2 X 10^3 (1.8-7.8); NEUTROPHILS % (AUTO) 59 % (42-75); RED CELL DISTRIBUTION WIDTH 14.2 % (10.0-14.5)
[2016-05-28 19:53] LABS: MEAN CORPUSCULAR HEMOGLOBIN 27 PG (25-34); PLATELET COUNT 225 10^3/uL (130-400); RED BLOOD COUNT 4.64 10^6/uL (4.35-5.85); WHITE BLOOD COUNT 9.9 10^3/uL (4.3-11.0)
[2016-05-28 19:58] LABS: BILIRUBIN,URINE NEGATIVE (NEGATIVE); KETONES,URINE NEGATIVE (NEGATIVE); LEUKOCYTE ESTERASE ,URINE NEGATIVE (NEGATIVE); NITRITE,URINE NEGATIVE (NEGATIVE); PH,URINE 5 (5-9); PROTEIN,URINE NEGATIVE (NEGATIVE); UROBILINOGEN,URINE NORMAL (NORMAL)
[2016-05-28 20:02] LABS: SQUAMOUS EPITHELIAL CELL,UR 0-2 /HPF; WBC,URINE RARE /HPF
[2016-05-28 20:07] LABS: ALANINE AMINOTRANSFERASE 28 U/L (0-55); ALBUMIN 4.1 G/DL (3.2-4.5); ALCOHOL 155 MG/DL (<10); AMYLASE 35 U/L (25-125); ANION GAP 11 MMOL/L (5-14); ASPARTATE AMINO TRANSFERASE 31 U/L (5-34); BILIRUBIN,TOTAL 0.3 MG/DL (0.1-1.0); BLOOD UREA NITROGEN 11 MG/DL (7-18); BUN/CREATININE RATIO 12; CALCIUM 8.4 MG/DL (8.5-10.1); CARBON DIOXIDE 19 MMOL/L (21-32); CHLORIDE 110 MMOL/L (98-107); CREATININE SERUM 0.89 MG/DL (0.60-1.30); GFR ESTIMATED > 60; GLUCOSE 108 MG/DL (70-105); LIPASE 23 U/L (8-78); POTASSIUM 4.2 MMOL/L (3.6-5.0); SALICYLATE < 5.0 MG/DL (5.0-20.0); SODIUM 140 MMOL/L (135-145); TOTAL PROTEIN 6.6 G/DL (6.4-8.2)
[2016-05-28 20:09] LABS: ACETAMINOPHEN < 10 UG/ML (10-30)
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
--- NOTE | 2016-05-28 20:14 | Diagnostic Imaging Report ---
INDICATION: Overdose, vomiting Upright chest shows normal heart size and vascularity. The lungs are clear. There is no effusion or pneumothorax. IMPRESSION: Normal chest. There is no change from 05/08/16. Dictated by: Dictated on workstation # [id number]
[2016-05-28] MEDS ORDERED: D5 1/2 NS 1000 ML IV SOLUTION 1,000 ML IV ONE (21:11)
[2016-05-28] MEDS ORDERED: CATHETER FLUSH 10 ML SYR IV PRN (22:00)
[2016-05-28] MEDS: D5 1/2 NS 1000 ML IV SOLUTION 1,000 ML IV SCH (22:00)
[2016-05-28] MEDS: CATHETER FLUSH 10 ML SYR IV SCH (22:00)
[2016-05-28] MEDS ORDERED: ONDANSETRON 4 MG/2 ML (SDV) Z0FRAN IV PRN (22:00)
[2016-05-29] VITALS (14 sets, daily range): BP systolic 94–136; BP diastolic 53–87
[2016-05-29] MEDS: D5 1/2 NS 1000 ML IV SOLUTION 1,000 ML IV SCH ×2 (02:29→07:38)
[2016-05-29 04:04] LABS: BASOPHILS % (AUTO) 1 % (0-10); EOSINOPHILS # (AUTO) 0.1 10^3/uL (0.0-0.3); EOSINOPHILS % (AUTO) 1 % (0-10); LYMPHOCYTES # (AUTO) 2.4 X 10^3 (1.0-4.0); LYMPHOCYTES % (AUTO) 38 % (12-44); MEAN CORPUSCULAR HEMOGLOBIN 27 PG (25-34); MEAN CORPUSCULAR HGB CONC 31 G/DL (32-36); MEAN CORPUSCULAR VOLUME 85 FL (80-99); MEAN PLATELET VOLUME 10.8 FL (7.4-10.4); MONOCYTES # (AUTO) 0.6 X 10^3 (0.0-1.0); MONOCYTES % (AUTO) 9 % (0-12); NEUTROPHILS # (AUTO) 3.3 X 10^3 (1.8-7.8); NEUTROPHILS % (AUTO) 51 % (42-75); PLATELET COUNT 193 10^3/uL (130-400); RED BLOOD COUNT 3.98 10^6/uL (4.35-5.85); RED CELL DISTRIBUTION WIDTH 14.3 % (10.0-14.5); WHITE BLOOD COUNT 6.4 10^3/uL (4.3-11.0)
[2016-05-29 04:54] LABS: ALANINE AMINOTRANSFERASE 22 U/L (0-55); ALBUMIN 3.2 G/DL (3.2-4.5); ANION GAP 8 MMOL/L (5-14); ASPARTATE AMINO TRANSFERASE 21 U/L (5-34); BILIRUBIN,TOTAL 0.4 MG/DL (0.1-1.0); BLOOD UREA NITROGEN 6 MG/DL (7-18); BUN/CREATININE RATIO 8; CALCIUM 7.7 MG/DL (8.5-10.1); CARBON DIOXIDE 17 MMOL/L (21-32); CHLORIDE 114 MMOL/L (98-107); CREATININE SERUM 0.75 MG/DL (0.60-1.30); GFR ESTIMATED > 60; GLUCOSE 119 MG/DL (70-105); MAGNESIUM 1.9 MG/DL (1.8-2.4); PHOSPHORUS 3.7 MG/DL (2.3-4.7); POTASSIUM 3.7 MMOL/L (3.6-5.0); SODIUM 139 MMOL/L (135-145); TOTAL PROTEIN 5.4 G/DL (6.4-8.2)
[2016-05-29] MEDS: CATHETER FLUSH 10 ML SYR IV SCH (07:38)
[2016-05-29] MEDS ORDERED: PANTOPRAZOLE 40 MG/10 ML (PROTONIX) VIAL IV SCH (09:00)
[2016-05-29] MEDS ORDERED: IBUP-2055 PO (09:16)
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
[2016-05-30] MEDS ORDERED: PANTOPRAZOLE 40 MG (PROTONIX) TAB PO SCH (07:00)
--- NOTE | 2016-05-30 15:54 | Behavioral Health Consult ---
Consult- Consult Date: 05/29/16 CPT Code: 38391 Psychotherapy (Session length 60 min.) and 16572 Interactive Complexity Start Time: 1410 End Time: 1505 Duration: 55 minutes Subjective: Fina, a 22-year-old female, is seen today for individual psychotherapy to address concerns and symptoms associated with F33.1 Major depressive disorder, moderate, recurrent. The primary clinical themes and problems discussed during the appointment were depressed mood, marital problems , suicidal ideation, and recent overdose. Fina was admitted to [facility] on 05/28/16 via the ED after she drank wine and tequila and took 24 (0.25 Xanax). According to records, her alcohol and benzo levels were elevated. Fina has previously been seen at [facility] by LICHA Nuñez but only for an intake on 05/23/16. She presented at that time with reports of suicidal ideation and symptoms of depression, social phobia, and agoraphobia with panic attacks. She was previously seen by Mariana Valladares for two sessions in 06/2014, but did not follow through with treatment. She is prescribed Xanax and Buspar by Diane Smith APRN. She is not currently taking an anti-depressant. Information for this assessment was provided by Haylie from inpatient care management. The current situation was staffed with Leigh Mckeon prior to seeing Fina. Fina was then seen with her spouse and mother in ICU. They were involved just briefly before being asked to leave by this provider, when Fina shared that she just discovered that her spouse was cheating on her. She apparently found messages in his email. Her mother reported that they had been having some problems for a while, but she feels that Fina overreacted in this case. Fina stated that she is not currently suicidal, but did admit to drinking a high quantity of tequila and not remembering that she took Xanax. We talked about how drinking can bring up repressed feelings. She stated that she plans to stop drinking. She stated that she didnt mean to overdose, but wanted to disconnect from the situation with her spouse. She stated that a couple weeks ago she expressed suicidal ideation because she was "reaching out for help." She stated that she is feeling better now because she has spoken to her spouse. Given her history, she was informed that this providers recommendation was to pursue inpatient psychiatric hospitalization. She became upset with this and attempted to persuade the provider to change the recommendation due to a trip on 06/01/16 with her spouse and [id number] to [place]. She stated I need to be with them right now. We talked about how she has to care for her health, learn new coping skills, become happy with herself, and undergo a consultation for psychiatric medication. According to Haylie, they have discussed hospitalization and a bed is available at [facility] in [place]. Fina stated that she fears going because she wont feel comfortable being around new people and doesnt want to be alone. We talked about how she can learn new skills. She was also given information on a facility in [place] and she noted that that may be better since her grandmother lives in [place]. She was told that she has the choice to go voluntarily or she would have to be screened by mental health for involuntary admission. She shut down and asked to have her family come back into the room. During that time, this provided reviewed the information with Haylie. Fina was seen again after talking to family and consented to psychiatric admission voluntarily. Her mother reported that they would transport her and indicated that she felt confident that Fina would comply with the recommendations. Haylie facilitated the transfer. Overall symptoms observed or reported requiring current level of care included depressed mood, frequent tearfulness, guilt, hopelessness, marital/intimate relationship strain, panic attacks, anxiety, social fears, dependency, attention seeking, and worthlessness. Relevant changes in medical status: none reported, observed, or indicated. Current report of any problems with pain: none reported, observed, or indicated. Pain rating: n/a. Any changes or additions to medications: none reported. Current self-destructive behavior patterns/risk factors reported or indicated during session: suicide threats and suicide attempts. Level of functioning was average. Objective: Fina was seen bedside at [facility] ICU. Fina was accompanied by her spouse and mother. She was initially calm with them and they displayed compassion. However, she yelled at her mother stating I told you they would lock me up after this provider informed her of the treatment plan. At the close of the meeting, she held her spouses hand and apologized to him. He appeared understanding. Fina was oriented to person, place, time, and situation. Overall appearance was dressed in a hospital gown, but otherwise appropriate and indicated adequate self-care. Gabriel approach to the session was depressed and tearful. She displayed guilt and some manipulative behaviors by trying to persuade this provider into allowing her to go home. Mood was depressed and anxious with labile affect. Eye contact was fair. Tone of voice was soft. Speech was emotional. Thought processes were appropriate and focused during the appointment. Thought content was marked by obsessions. Psychomotor retardation was observed. Insight was poor. Concentration was good. Gabriel style of interacting during the appointment was defensive and manipulative. Assessment: Interventions utilized during todays appointment included crisis management and screening for inpatient hospitalization. Concerning progress to this point in treatment, Fina appears to be making inconsistent progress towards treatment goals from observations during todays appointment. According to records, Fina appeared to have some deterioration in anxiety/tension, behavior, and emotional functioning since her last therapy appointment. Overall , a/an average level of motivation was displayed towards treatment goals. Fina s capacity to make changes/decisions is good. Overall, prognosis is good. Diagnostic Impressions (ICD-10): F33.1 Major depressive disorder, moderate, recurrent; Traits of borderline personality disorder Plan: The appointment ended on time. It is recommended that her current treatment/therapy plan be modified to include assessment of personality disorder, marital therapy, and focus on improvement in coping skills. Fina is recommended to enter into inpatient psychiatric hospitalization. Her next appointment with Leigh Mckeon was cancelled and she was encouraged to call and reschedule after discharge. This information was shared with Leigh Polanco, the ICU nurse, and psych social worker. KENAN DE LOS SANTOS PHD May 30, 2016 15:53
== END 2016-05-29 19:45 | DRG 918 ==
LOC: EDUNIT# 19:19 → ER 19:20 → ICU 20:00
PROVIDERS: ADMIT Internal Medicine; ATTEND Internal Medicine
DX: T42.4X2A Poisoning by benzodiazepines, intentional self-harm, initial encounter (principal); T51.0X2A Toxic effect of ethanol, intentional self-harm, initial encounter; F10.129 Alcohol abuse with intoxication, unspecified; F31.9 Bipolar disorder, unspecified
CPT/HCPCS: 36415; 71010; 80053; 80306; 80320; 80329; 81000; 82150; 83690; 83735; 84100; 84443; 84703; 85025; 93005; 93041; 96361; 96374

== ENCOUNTER → 2016-11-01 | Outpatient (CLI) | payer OTHER ==
[~2016-11-01] MED LIST changes: +IBUP-2055 PO
--- NOTE | 2016-11-01 20:28 | Diagnostic Imaging Report ---
INDICATION: Right-sided pelvic pain. TECHNIQUE: Multiple real-time grayscale sonographic images were obtained of the pelvis transabdominally and transvaginally. CORRELATION STUDY: 05/08/2016. FINDINGS: UTERUS/ENDOMETRIUM: Uterus measures 6.2 x 4.5 x 3.2 cm. Endometrial thickness is 9 mm. The intrauterine contraceptive device is within the endometrial canal. However, this appears to be slightly deviated towards the anterior aspect. This could be reflective of an underlying endometrial polyp. This area does demonstrate some vascularity. RIGHT OVARY: Not visualized. LEFT OVARY: Not visualized. Ovaries cannot be visualized, may be obscured by overlying bowel gas or perhaps owing to position. Definitive adnexal mass does not appear to be present. No significant free pelvic fluid. IMPRESSION: 1. Intrauterine contraceptive device is within the endometrial canal; however, this does appear to be deviated. This may be owing to perhaps a polyp. Some vascularity is noted in this region. The possibility of underlying inflammation or endometritis would be difficult to exclude. Dictated by: Dictated on workstation # [id number]
== END ==
LOC: RAD 12:40
PROVIDERS: ATTEND Obstetrics & Gynecology
DX: Z97.5 Presence of (intrauterine) contraceptive device; R10.2 Pelvic and perineal pain
CPT/HCPCS: 76830; 76856

== ENCOUNTER 2016-11-03 16:04 | Emergency (ER) | payer OTHER ==
[~2016-11-03] VITALS: Ht 180.3 cm; Wt 154.2 kg
[2016-11-03 18:02] LABS: BASOPHILS % (AUTO) 0 % (0-10); BILIRUBIN,URINE NEGATIVE (NEGATIVE); EOSINOPHILS # (AUTO) 0.2 10^3/uL (0.0-0.3); EOSINOPHILS % (AUTO) 2 % (0-10); KETONES,URINE NEGATIVE (NEGATIVE); LEUKOCYTE ESTERASE ,URINE 1+ (NEGATIVE); LYMPHOCYTES # (AUTO) 2.8 X 10^3 (1.0-4.0); LYMPHOCYTES % (AUTO) 31 % (12-44); MEAN CORPUSCULAR HEMOGLOBIN 27 PG (25-34); MEAN CORPUSCULAR HGB CONC 32 G/DL (32-36); MEAN CORPUSCULAR VOLUME 85 FL (80-99); MONOCYTES # (AUTO) 0.4 X 10^3 (0.0-1.0); MONOCYTES % (AUTO) 5 % (0-12); NEUTROPHILS # (AUTO) 5.6 X 10^3 (1.8-7.8); NEUTROPHILS % (AUTO) 62 % (42-75); NITRITE,URINE NEGATIVE (NEGATIVE); PH,URINE 5 (5-9); PLATELET COUNT 241 10^3/uL (130-400); PROTEIN,URINE 1+ (NEGATIVE); RED CELL DISTRIBUTION WIDTH 13.4 % (10.0-14.5); UROBILINOGEN,URINE NORMAL (NORMAL)
[2016-11-03 18:18] LABS: YEAST,URINE FEW /HPF
[2016-11-03 18:22] LABS: ALANINE AMINOTRANSFERASE 39 U/L (0-55); ALBUMIN 4.3 GM/DL (3.2-4.5); AMYLASE 43 U/L (25-125); ANION GAP 11 MMOL/L (5-14); ASPARTATE AMINO TRANSFERASE 33 U/L (5-34); BILIRUBIN,TOTAL 0.3 MG/DL (0.1-1.0); BLOOD UREA NITROGEN 16 MG/DL (7-18); BUN/CREATININE RATIO 17; CALCIUM 9.4 MG/DL (8.5-10.1); CARBON DIOXIDE 22 MMOL/L (21-32); CHLORIDE 105 MMOL/L (98-107); CREATININE SERUM 0.92 MG/DL (0.60-1.30); GFR ESTIMATED > 60; GLUCOSE 93 MG/DL (70-105); LIPASE 17 U/L (8-78); POTASSIUM 4.3 MMOL/L (3.6-5.0); SODIUM 138 MMOL/L (135-145); TOTAL PROTEIN 7.7 GM/DL (6.4-8.2)
--- NOTE | 2016-11-03 19:21 | ED Abdominal Pain ---
General Chief Complaint: Abdominal/GI Problems Stated Complaint: SHARP RIGHT PAIN Nursing Triage Note: PT HERE WITH C/O RLQ PAIN FOR 8 DAYS. PT REPORTS NAUSEA DENIES VOMITING. PT HAD US ON 11/01/16. Sepsis Screen: No Definite Risk Source of Information: Patient History of Present Illness Time Seen By Provider: 18:00 Initial Comments C/O RLQ PAIN X 8 DAYS PAIN IS CONSTANT NOTHING WORSENS OR IMPROVES PAIN TOOK IBUPROFEN X 1 DOSE EARLIER TODAY WITHOUT SIGNIFICANT IMPROVEMENT NO NAUSEA/VOMITING/DIARRHEA/CONSTIPATION--LAST BM WAS 1800 YESTERDAY NO URINARY SYMPTOMS NO FEVER NO VAGINAL DISCHARGE LMP 8 DAYS AGO, LASTED 3 DAYS, NORMAL. PT HAD MIRENA IUD PLACED 03/2016 HAD SIMILAR PAIN IN RLQ 04/2016 AND WAS DX WITH RIGHT OVARIAN CYST. NO FOLLOW UP ULTRASOUND HAS BEEN DONE. HAS BEEN DX WITH PCOS IN PAST PT HAD NOT HAD ANY PROBLEMS SINCE, UNTIL 8 DAYS AGO CALLED 'S OFFICE THIS WEEK AND OUTPATIENT ULTRASOUND ORDERED AND WAS DONE 11/01/16--WAS NOT SEEN BY ANYONE--AND RESULTS UNKNOWN TO PT NO FOLLOW UP APPOINTMENT HAS BEEN MADE PCP: DR. SALAS PHARMACIST HOSPITAL: DR. HELTON Allergies and Home Medications Allergies Coded Allergies: No Known Drug Allergies (Unverified , 05/08/16) Home Medications Biotin 1,000 Mcg Tablet, 1,000 MCG PO DAILY, (Reported) Cholecalciferol (Vitamin D3) 1,000 Unit Tablet, 1,000 UNIT PO DAILY, (Reported) Ciprofloxacin HCl 500 Mg Tablet, 500 MG PO BID, #20 Prescribed by: LILY QUESADA on 11/03/161953 Levothyroxine Sodium 25 Mcg Tablet, 25 MCG PO HS, (Reported) Multivit with Calcium,Iron,Min 1 Each Tablet, 1 TAB PO DAILY, (Reported) Naproxen 500 Mg Tablet, 500 MG PO BID, #20 Prescribed by: LILY QUESADA on 11/03/161953 Tramadol HCl 50 Mg Tablet, 50 MG PO Q4H, #20 Prescribed by: LILY QUESADA on 11/03/161953 Review of Systems Constitutional: no symptoms reported Respiratory: No Symptoms Reported Cardiovascular: No Symptoms Reported Gastrointestinal: See HPI, Abdominal Pain, Denies Constipated, Denies Diarrhea , Denies Nausea, Denies Vomiting Genitourinary: No Symptoms Reported Musculoskeletal: no symptoms reported, No back pain Skin: no symptoms reported Psychiatric/Neurological: No Symptoms Reported Endocrine: No Symptoms Reported Hematologic/Lymphatic: No Symptoms Reported Past Prnvkhf-Bcuhca-Jwgrsg Hx Patient Social History Alcohol Use: Rarely Uses Alcohol Beverage of Choice: Wine Recreational Drug Use: No Smoking Status: Never a Smoker 2nd Hand Smoke Exposure: No Recent Foreign Travel: No Contact w/Someone Who Travel: No Recent Infectious Disease Expo: No Recent Hopitalizations: No Immunizations Up To Date PED Vaccines UTD: Yes Seasonal Allergies Seasonal Allergies: No Surgeries History of Surgeries: Yes (WISDOM TEETH ) Surgeries: Tonsillectomy Respiratory History of Respiratory Disorde: No Currently Using CPAP: No Currently Using BIPAP: No Cardiovascular History of Cardiac Disorders: No Neurological History of Neurological Disord: No Reproductive System : No Last Menstrual Period: Oct 27, 2016 Hx Reproductive Disorders: Yes (PCOS) Sexually Transmitted Disease: No HIV/AIDS: No Female Reproductive Disorders: Ovarian Cyst, Polycystic Ovarian Dis 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9 98.3 Pulse 84 73 Resp 18 18 B/P (MAP) 152/77 Pulse Ox 98 98 O2 Delivery Room Air Capillary Refill : Less Than 3 Seconds General Appearance: no apparent distress, obese, other (SMILING, WALKS UPRIGHT AND MOVES WITHOUT DIFFICULTY) Neck: normal inspection Respiratory: normal breath sounds, no respiratory distress, no accessory muscle use Cardiovascular: regular rate, rhythm, no murmur Gastrointestinal: normal bowel sounds, soft, no organomegaly, no pulsatile mass , No distended, No guarding, No rebound, tenderness (MODERATE RLQ TENDERNESS), No hernia, No mass Extremities: normal inspection, normal capillary refill Back: no CVA tenderness Neurologic/Psychiatric: 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, no motor/sensory deficits, alert, normal mood/affect, oriented x 3 Skin: normal color, warm/dry, No rash Progress/Results/Core Measures Results/Orders Lab Results Laboratory Tests Test 11/03/16 17:53 Range/Units White Blood Count 9.0 4.3-11.0 10^3/uL Red Blood Count 4.90 4.35-5.85 10^6/uL Hemoglobin 13.4 11.5-16.0 G/DL Hematocrit 42 35-52 % Mean Corpuscular Volume 85 80-99 FL Mean Corpuscular Hemoglobin 27 25-34 PG Mean Corpuscular Hemoglobin Concent 32 32-36 G/DL Red Cell Distribution Width 13.4 10.0-14.5 % Platelet Count 241 130-400 10^3/uL Mean Platelet Volume 11.0 H 7.4-10.4 FL Neutrophils (%) (Auto) 62 42-75 % Lymphocytes (%) (Auto) 31 12-44 % Monocytes (%) (Auto) 5 0-12 % Eosinophils (%) (Auto) 2 0-10 % Basophils (%) (Auto) 0 0-10 % Neutrophils # (Auto) 5.6 1.8-7.8 X 10^3 Lymphocytes # (Auto) 2.8 1.0-4.0 X 10^3 Monocytes # (Auto) 0.4 0.0-1.0 X 10^3 Eosinophils # (Auto) 0.2 0.0-0.3 10^3/uL Basophils # (Auto) 0.0 0.0-0.1 10^3/uL Urine Color YELLOW Urine Clarity VERY CLOUDY H Urine pH 5 5-9 Urine Specific [place] 1.025 H 1.016-1.022 Urine Protein 1+ H NEGATIVE Urine Glucose (UA) NEGATIVE NEGATIVE Urine Ketones NEGATIVE NEGATIVE Urine Nitrite NEGATIVE NEGATIVE Urine Bilirubin NEGATIVE NEGATIVE Urine Urobilinogen NORMAL NORMAL MG/DL Urine Leukocyte Esterase 1+ H NEGATIVE Urine RBC (Auto) 4+ H NEGATIVE Urine RBC RARE /HPF Urine WBC 2-5 /HPF Urine Squamous Epithelial Cells 5-10 /HPF Urine Crystals NONE /LPF Urine Bacteria MODERATE H /HPF Urine Casts NONE /LPF Urine Mucus SMALL H /LPF Urine Yeast FEW H /HPF Urine Culture Indicated NO Sodium Level 138 135-145 MMOL/L Potassium Level 4.3 3.6-5.0 MMOL/L Chloride Level 105 98-107 MMOL/L Carbon Dioxide Level 22 21-32 MMOL/L Anion Gap 11 5-14 MMOL/L Blood Urea Nitrogen 16 7-18 MG/DL Creatinine 0.92 0.60-1.30 MG/DL Estimat Glomerular Filtration Rate > 60 BUN/Creatinine Ratio 17 Glucose Level 93 70-105 MG/DL Calcium Level 9.4 8.5-10.1 MG/DL Total Bilirubin 0.3 0.1-1.0 MG/DL Aspartate Amino Transf (AST/SGOT) 33 5-34 U/L Alanine Aminotransferase (ALT/SGPT) 39 0-55 U/L Alkaline Phosphatase 83 40-136 U/L Total Protein 7.7 6.4-8.2 GM/DL Albumin 4.3 3.2-4.5 GM/DL Amylase Level 43 25-125 U/L Lipase 17 8-78 U/L Serum Test, Qualitative NEGATIVE NEGATIVE My Orders Orders - LILY QUESADA DO Hcg,Qualitative Serum (11/03/16 18:02) Saline Lock/Iv-Start (11/03/16 18:02) Ct Abd/Pelvis Wo(Kidney Stone) (11/03/16 18:21) Abdomen/Kub 1view (11/03/16 18:21) Ketorolac Injection (Toradol Injection) (11/03/16 19:50) Ceftriaxone Injection (Rocephin Injectio (11/03/16 20:00) Lidocaine 1% Injection (Xylocaine 1% Inj (11/03/16 20:00) Rx-Levofloxacin (Rx-Levaquin) (11/03/16 19:50) Rx-Naproxen (Rx-Naprosyn) (11/03/16 19:50) Rx-Tramadol Hcl (Rx-Ultram) (11/03/16 19:50) Medications Given in ED Current Medications Medications Dose Ordered Sig/Rgaham Route Start Time Stop Time Status Last Admin Dose Admin Ceftriaxone Sodium 1,000 mg ONCE ONCE IM 11/03/16 20:00 11/03/16 20:01 DC 11/03/16 20:21 1,000 MG Lidocaine HCl 2.1 ml ONCE ONCE INJ 11/03/16 20:00 11/03/16 20:01 DC 11/03/16 20:21 2.1 ML Vital Signs/I&O Vital Sign - Last 12Hours 11/03/16 11/03/16 17:33 21:25 Temp 97.9 98.3 Pulse 84 73 Resp 18 18 B/P (MAP) 152/77 Pulse Ox 98 98 O2 Delivery Room Air Blood Pressure Mean: 102 Progress Note : Progress Note REVIEWED ULTRASOUND DONE ON 11/01/16--OVARIES NOT VISUALIZED, NO ADNEXAL MASSES , IUD SLIGHTLY DEVIATED ANTERIORLY-QUESTIONABLE POLYP VS ENDOMETRIAL INFLAMMATION Diagnostic Imaging Comments KUB--NO ACUTE PROCESS CT ABDOMEN/PELVIS--NO ACUTE PROCESS, MODERATE AMOUNT OF STOOL PER RADIOLOGIST REPORTS @ 1944 Reviewed: Reviewed by Me Departure Impression Impression: Primary Impression: Urinary tract infection Additional Impressions: Right lower quadrant pain Constipation Disposition: HOME, SELF-CARE Condition: Stable Departure-Patient Inst. Referrals: ENRIKE SALAS DO (PCP/Family) Primary Care Physician Patient Instructions: Acute Abdomen (Belly Pain), Adult (DC), Constipation, Adult (DC), Urinary Tract Infection, Adult (DC) Add. Discharge Instructions: LOTS OF CLEAR LIQUIDS--NO COFFEE, POP OR TEA TAKE MIRALAX DAILY--YOU MAY TAKE VERY 4 HOURS UNTIL YOU HAVE A BM, THEN DECREASE TO ONCE A DAY FOLLOW UP WITH DR HELTON NEXT WEEK FOR FURTHER CARE, RETURN TO ER IF WORSE All discharge instructions reviewed with patient and/or family. Voiced understanding. Scripts Naproxen (Naproxen) 500 Mg Tablet 500 MG PO BID, #20 TAB Prov: LILY QUESADA DO 11/03/16 Tramadol HCl (Ultram) 50 Mg Tablet 50 MG PO Q4H, #20 TAB Prov: LILY QUESADA DO 11/03/16 Ciprofloxacin HCl (Cipro) 500 Mg Tablet 500 MG PO BID, #20 TAB Prov: LILY QUESADA DO 11/03/16 LILY QUESADA DO Nov 03, 2016 19:21
--- NOTE | 2016-11-03 19:33 | Diagnostic Imaging Report ---
PROCEDURE: CT urinary tract, rule out kidney stone. TECHNIQUE: Multiple contiguous axial images were obtained through the abdomen and pelvis without the use of intravenous contrast. DATE: 11/03/2016. COMPARISON: CT abdomen and pelvis 05/08/2016. INDICATION: 21-year-old female, right lower quadrant pain and nausea for eight days. FINDINGS: There are limitations for evaluation of the abdominal organs, neoplastic processes, abscess, and limited evaluation of the vasculature relating to the lack of intravenous contrast. The visualized portions of the lung bases are clear. The heart is not enlarged. There is no identified pericardial effusion. The liver is normal in size and contour. The gallbladder is unremarkable. There is no intrahepatic or extrahepatic bile duct dilation. The main pancreatic duct is not grossly dilated. Unremarkable noncontrast appearance of the pancreatic parenchyma. The spleen is not enlarged. The adrenal glands are unremarkable. Unremarkable appearance of the renal parenchyma. The urinary collecting systems are not distended. There is no identified renal or ureteral stone. The urinary bladder is underdistended and otherwise grossly unremarkable in appearance. There is an intrauterine contraceptive device within the midline uterus, highly likely within the endometrial cavity. The intestinal tract is not distended. The appendix is difficult to definitively identify. There are no secondary findings to suggest acute appendicitis. There is no free intraperitoneal air. There is no drainable fluid collection. There is no free pelvic fluid. There is a fat-containing umbilical hernia. There are subcentimeter short axis mesenteric lymph nodes. There is no identified abnormally enlarged lymph node in the abdomen or pelvis which specifically meets CT size criteria for adenopathy. 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 There is no identified acute bony abnormality. IMPRESSION: CT ABDOMEN AND PELVIS. 1. No identified acute abnormality within the abdomen or pelvis. 2. Intrauterine contraceptive device projecting within the endometrial cavity. Dictated by: Dictated on workstation # [id number]
--- NOTE | 2016-11-03 19:38 | Diagnostic Imaging Report ---
EXAMINATION: Abdominal radiograph, single supine view, two images. DATE: 11/03/2016. CLINICAL INDICATION: 21-year-old female, severe right lower quadrant pain with nausea for 8 days. COMPARISON: Same-day CT abdomen and pelvis 11/03/2016. COMMENTS: There is an intrauterine contraceptive device overlying the midline pelvis. There is a moderate volume of colonic stool. There are no abnormally distended gas-filled segments of bowel. There is no identified abnormal radiodensity overlying the kidneys, ureters, or right lower quadrant. IMPRESSION: 1. No identified acute abdominal radiographic abnormality. 2. Intrauterine contraceptive device overlying the midline pelvis. 3. Moderate-volume colonic stool. Dictated by: Dictated on workstation # [id number]
[2016-11-03] MEDS ORDERED: KETOROLAC 60 MG/2 ML VIAL IM STA (19:50)
[2016-11-03] MEDS ORDERED: RX-TRAMADOL 50 MG (ULTRAM) TAB PPK#4 PO STA (19:50)
[2016-11-03] MEDS ORDERED: RX-NAPROXEN (NAPROSYN) 250 MG TAB PPK#4 PO STA (19:50)
[2016-11-03] MEDS ORDERED: RX-LEVOFLOXACIN 500 MG (LEVAQUIN) TAB #1 PPK PO STA (19:50)
[2016-11-03] MEDS ORDERED: CIPR-225 PO (19:54)
[2016-11-03] MEDS ORDERED: NAPR500T4 PO (19:54)
[2016-11-03] MEDS ORDERED: TRAM-42 PO (19:54)
[2016-11-03] MEDS ORDERED: LIDOCAINE 1% INJ 20 ML (XYLOCAINE) VIAL INJ ONE (20:00)
[2016-11-03] MEDS ORDERED: cefTRIAXone 1 GM (ROCEPHIN) VIAL IM ONE (20:00)
[2016-11-03 21:25] VITALS: BP 138/87
== END 2016-11-03 21:25 | disposition home or self-care (01) ==
LOC: EDUNIT# 16:04 → ER 16:05
DX: N39.0 Urinary tract infection, site not specified (principal); K59.00 Constipation, unspecified; E66.9 Obesity, unspecified; F41.9 Anxiety disorder, unspecified; F32.9 Major depressive disorder, single episode, unspecified; Z91.5 Personal history of self-harm; Z68.42 Body mass index [BMI] 45.0-49.9, adult; Z90.89 Acquired absence of other organs; Z87.448 Personal history of other diseases of urinary system; Z97.5 Presence of (intrauterine) contraceptive device
CPT/HCPCS: 36415; 74000; 74176; 80053; 81000; 82150; 83690; 84703; 85025; 96372; 99284

== ENCOUNTER 2016-12-27 13:38 | Emergency (ER) | payer OTHER ==
[~2016-12-27] VITALS: Ht 180.3 cm; Wt 154.2 kg
[~2016-12-27 13:38] MED LIST changes: +CIPR-225 PO; +NAPR500T3 PO; +TRAM-42 PO
--- NOTE | 2016-12-27 13:53 | ED Upper Extremity ---
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 Rather superficial but could not control bleeding at home. Tetanus not up to date. Was cutting a piece of twine making a sign at home using a pocket knife. Onset: just prior to arrival Severity: moderate Pain/Injury Location: left 2nd finger Method of Injury: incised Allergies and Home Medications Allergies Coded Allergies: No Known Drug Allergies (Unverified , 05/08/16) Home Medications Biotin 1,000 Mcg Tablet, 1,000 MCG PO DAILY, (Reported) Cholecalciferol (Vitamin D3) 1,000 Unit Tablet, 1,000 UNIT PO DAILY, (Reported) Ciprofloxacin HCl 500 Mg Tablet, 500 MG PO BID, #20 Prescribed by: LILY QUESADA on 11/03/161953 Levothyroxine Sodium 25 Mcg Tablet, 25 MCG PO HS, (Reported) Multivit with Calcium,Iron,Min 1 Each Tablet, 1 TAB PO DAILY, (Reported) Naproxen 500 Mg Tablet, 500 MG PO BID, #20 Prescribed by: LILY QUESADA on 11/03/161953 Tramadol HCl 50 Mg Tablet, 50 MG PO Q4H, #20 Prescribed by: LILY QUESADA on 11/03/161953 Constitutional: see HPI EENTM: see HPI Respiratory: no symptoms reported Cardiovascular: no symptoms reported Genitourinary: no symptoms reported Musculoskeletal: no symptoms reported Skin: see HPI Psychiatric/Neurological: No Symptoms Reported Past Hxhunxn-Wgedxh-Yaeomv Hx Patient Social History Alcohol Use: Denies Use Number of Drinks Today: Alcohol Beverage of Choice: Wine Recreational Drug Use: No Smoking Status: Never a Smoker 2nd Hand Smoke Exposure: No Recent Foreign Travel: No Contact w/Someone Who Travel: No Recent Infectious Disease Expo: No Recent Hopitalizations: No Physical Abuse: No Sexual Abuse: No Immunizations Up To Date Tetanus Booster (TDap): More than 5yrs PED Vaccines UTD: Yes Seasonal Allergies Seasonal Allergies: No Surgeries History of Surgeries: Yes (WISDOM TEETH ) Surgeries: Tonsillectomy Respiratory History of Respiratory Disorde: No Currently Using CPAP: No Currently Using BIPAP: No Cardiovascular History of Cardiac Disorders: No Neurological History of Neurological Disord: No Reproductive System Hx Reproductive Disorders: Yes (PCOS) Sexually Transmitted Disease: No HIV/AIDS: No Female Reproductive Disorders: Ovarian Cyst, Polycystic Ovarian Dis 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 Genitourinary History of Genitourinary Disor: No Gastrointestinal History of Gastrointestinal Di: No Musculoskeletal History of Musculoskeletal Dis: No Endocrine History of Endocrine Disorders: Yes (OBESITY) HEENT History of HEENT Disorders: No Cancer History of Cancer: No Psychosocial History of Psychiatric Problem: Yes (social anxiety) Behavioral Health Disorders: Anxiety, Suicide Attempts, Depression Suicide Risk Score: 0 Integumentary History of Skin or Integumenta: No Blood Transfusions History of Blood Disorders: No Physical Exam Vital Signs Vital Sign - Last 12Hours 12/27/16 13:44 Temp 98.2 Pulse 106 Resp 18 B/P (MAP) 143/93 Pulse Ox 96 Capillary Refill : Less Than 3 Seconds General Appearance: WD/WN, no apparent distress HEENT: PERRL/EOMI, normal ENT inspection Neck: non-tender, full range of motion Respiratory: no respiratory distress, no accessory muscle use Gastrointestinal: non tender Shoulder: normal inspection, non-tender Wrist: Yes normal inspection, Yes non-tender Hand: normal inspection, Left, laceration (3 semi-laceration to the radial side left pointer finger from the DIP joint to the tip of the finger. Rather superficial but in place as it does go down to the subcutaneous tenderness tissues to this needs closed. I did use Dermabond after scrubbing with chlorhexidine/saline solution. She was then placed in a finger splint to limit flexion of the finger and subsequent early peeling off of the glue.) Neurologic/Psychiatric: alert, normal mood/affect, oriented x 3 Skin: normal color, warm/dry Progress/Results/Core Measures Results/Orders My Orders Orders - MOSES ESPARZA APRN Dipht,Alison(Acell),Tet Adult (Boostrix (12/27/16 14:00) Vital Signs/I&O Vital Sign - Last 12Hours 12/27/16 13:44 Temp 98.2 Pulse 106 Resp 18 B/P (MAP) 143/93 Pulse Ox 96 Blood Pressure Mean: 110 Departure Impression Impression: Primary Impression: Finger laceration Disposition: 01 HOME, SELF-CARE Condition: Improved Departure-Patient Inst. Referrals: VINAY SALAS DNP (PCP) Primary Care Physician Patient Instructions: Laceration Repair With Glue (DC) MOSES ESPARZA APRN Dec 27, 2016 13:52
[2016-12-27] MEDS: TETANUS,DIPTH,PERTUSS P/F (BOOSTRIX) 0.5 ML VIAL IM ONE (13:57)
[2016-12-27 13:59] VITALS: BP 143/93
== END 2016-12-27 13:57 | disposition home or self-care (01) ==
LOC: EDUNIT# 13:38 → ER 13:41
DX: S61.211A Laceration without foreign body of left index finger without damage to nail, initial encounter (principal); E66.9 Obesity, unspecified; F41.9 Anxiety disorder, unspecified; F32.9 Major depressive disorder, single episode, unspecified; Z68.42 Body mass index [BMI] 45.0-49.9, adult; Z91.5 Personal history of self-harm; Z23 Encounter for immunization; Z90.89 Acquired absence of other organs; Z87.448 Personal history of other diseases of urinary system; W26.0XXA Contact with knife, initial encounter
CPT/HCPCS: 90715; 99284

== ENCOUNTER → 2017-06-12 | Outpatient (CLI) | payer OTHER ==
[~2017-06-12] MED LIST changes: +NAPR-915 PO; -NAPR500T3 PO
--- NOTE | 2017-06-12 14:28 | Diagnostic Imaging Report ---
INDICATION: Acute pelvic pain. Pelvic sonogram. FINDINGS: Uterus measures 5.7 x 3.6 x 3.0 cm. Endometrial stripe is 7 mm. There is an IUD in place that appears to be in satisfactory position. The ovaries appear normal. There is no intraperitoneal free fluid. IMPRESSION: Unremarkable pelvic sonogram. Dictated by: Dictated on workstation # [id number]
== END ==
LOC: RAD 13:36
PROVIDERS: ATTEND Obstetrics & Gynecology
DX: N92.1 Excessive and frequent menstruation with irregular cycle (principal); Z68.42 Body mass index [BMI] 45.0-49.9, adult; Z97.5 Presence of (intrauterine) contraceptive device
CPT/HCPCS: 76830; 76856

== ENCOUNTER 2017-10-18 05:41 | Outpatient (CLI) | payer OTHER ==
[~2017-10-18] VITALS: Ht 180.3 cm; Wt 154.2 kg
[2017-10-18] MEDS ORDERED: LAMO150T2 PO (16:18)
[2017-10-18] MEDS ORDERED: iron PO (16:18)
[2017-10-24] MEDS ORDERED: HYDR-4226 PO (09:42)
[2017-10-24] MEDS ORDERED: IBUP-1773 PO (09:42)
== END 2017-10-18 16:20 | disposition home or self-care (01) ==
LOC: PREOP 05:41
PROVIDERS: ATTEND Obstetrics & Gynecology
DX: Z01.818 Encounter for other preprocedural examination (principal)

== ENCOUNTER 2017-10-24 08:11 | Day surgery (SDC) | payer OTHER ==
[~2017-10-24] VITALS: Ht 180.3 cm; Wt 154.2 kg
[~2017-10-24 08:11] MED LIST changes: +LAMO150T2 PO; +iron PO
[2017-10-24] MEDS ORDERED: BUPIVACAINE 0.25% 30 ML (SENSORCAINE) VIAL ONE (08:37)
[2017-10-24 08:48] LABS: BASOPHILS % (AUTO) 0 % (0-10); EOSINOPHILS # (AUTO) 0.1 10^3/uL (0.0-0.3); EOSINOPHILS % (AUTO) 1 % (0-10); HEMATOCRIT 43 % (35-52); HEMOGLOBIN 13.8 G/DL (11.5-16.0); LYMPHOCYTES # (AUTO) 2.5 X 10^3 (1.0-4.0); LYMPHOCYTES % (AUTO) 31 % (12-44); MEAN CORPUSCULAR HEMOGLOBIN 27 PG (25-34); MEAN CORPUSCULAR HGB CONC 32 G/DL (32-36); MEAN CORPUSCULAR VOLUME 84 FL (80-99); MEAN PLATELET VOLUME 10.7 FL (7.4-10.4); MONOCYTES # (AUTO) 0.5 X 10^3 (0.0-1.0); MONOCYTES % (AUTO) 6 % (0-12); NEUTROPHILS # (AUTO) 4.9 X 10^3 (1.8-7.8); NEUTROPHILS % (AUTO) 61 % (42-75); PLATELET COUNT 273 10^3/uL (130-400); RED BLOOD COUNT 5.12 10^6/uL (4.35-5.85); RED CELL DISTRIBUTION WIDTH 13.9 % (10.0-14.5)
[2017-10-24] MEDS ORDERED: LACTATED RINGERS 1,000 ML IV PRN (08:49)
[2017-10-24 08:55] VITALS: BP 137/103
[2017-10-24] MEDS ORDERED: ceFAZolin INJECTION 1,000 MG in NS (IVPB) 50 ML IV ONE (09:00)
[2017-10-24] MEDS ORDERED: fentaNYL INJECTION 100 MCG/2 ML AMP ONE (09:10)
[2017-10-24] MEDS ORDERED: MIDAZOLAM 2 MG/2 ML (VERSED) VIAL ONE (09:10)
[2017-10-24] MEDS ORDERED: ROCURONIUM 10 MG/ML 5 ML SYRINGE IV ONE (09:13)
[2017-10-24] MEDS ORDERED: DEXAMETHASONE 10 MG/ML (DECADRON) 1 ML VIAL ONE (09:13)
[2017-10-24] MEDS ORDERED: proPOfol 200 MG/20 ML (DIPRIVAN) VIAL IV ONE (09:13)
[2017-10-24] MEDS ORDERED: SEVOFLURANE (ULTANE) 15 ML INHAL SOLN ONE ×5 (09:13→10:35)
[2017-10-24] MEDS ORDERED: ONDANSETRON 4 MG/2 ML (SDV) Z0FRAN ONE (09:13)
[2017-10-24] MEDS ORDERED: LIDOCAINE PF 2% 2 ML (XYLOCAINE) VIAL ONE (09:13)
[2017-10-24] MEDS ORDERED: CATHETER FLUSH 10 ML SYR IV PRN (09:15)
[2017-10-24] MEDS ORDERED: D5 LR IV SOLUTION 1,000 ML IV SCH (09:39)
--- NOTE | 2017-10-24 09:39 | Progress Note-Pre Operative ---
Pre-Operative Progress Note H&P Reviewed The H&P was reviewed, patient examined and no changes noted. Date Seen by Provider: Oct 24, 2017 Time Seen by Provider: : Date H&P Reviewed: Oct 24, 2017 Time H&P Reviewed: :30 Pre-Operative Diagnosis: AUB, CPP, IUD in place KAYLAN HELTON DO Oct 24, 2017 9:39 am
--- NOTE | 2017-10-24 09:41 | Discharge Inst-Women's Service ---
Discharge Inst-Women's Serv Depart Medication/Instructions New, Converted or Re-Newed RX: RX on Chart Consults/Follow Up Additional Follow Up: Yes Orders/Referrals Dr. Lyles in 1-2 weeks Activity Activity: Activity as Tolerated Driving Instructions: No Driving for 1 Week NO SMOKING: NO SMOKING Nothing Inside Vagina: No Douching, No [place], No Tampons Diet Discharge Diet: No Restrictions Symptoms to Report to : Bleeding Excessive, Pain Increased, Fever Over 101 Degrees F, Vaginal Bleeding Increase, Questions/Concerns For Any Problems or Questions: Contact Your Physician Skin/Wound Care Infection Signs and Symptoms: Increased Redness, Foul Odor of Wound, Increased Drainage, Skin Itchy or Has a Rash, Increased Swelling, Temperature Above 101 F Operative Area Clean and Dry: Keep Incision Clean/Dry Stitches/Trae/Dermabond: Dermabond, Care of Stitches Bathing Instructions: KAYLAN Wan DO Oct 24, 2017 09:41
[2017-10-24] MEDS ORDERED: IBUP-1773 PO (09:42)
[2017-10-24] MEDS ORDERED: HYDR-4226 PO (09:42)
[2017-10-24] MEDS ORDERED: HYDROcodone/APAP 5 MG/325 MG (LORTAB) TAB PO PRN (09:45)
[2017-10-24] MEDS ORDERED: ONDANSETRON 4 MG/2 ML (SDV) Z0FRAN IVP PRN ×2 (09:45→11:00)
[2017-10-24] MEDS ORDERED: KETOROLAC 30 MG/ML VIAL IVP ONE (09:45)
[2017-10-24] MEDS ORDERED: NEOSTIGMINE 1 MG/ML 5 ML SYRINGE ONE (10:26)
[2017-10-24] MEDS ORDERED: GLYCOPYRROLATE 0.2 MG/ML (ROBINUL) 2 ML VIAL ONE (10:26)
[2017-10-24] MEDS ORDERED: KETOROLAC 30 MG/ML VIAL ONE (10:32)
[2017-10-24] MEDS ORDERED: PROMETHAZINE INJ 25 MG/ML (PHENERGAN) AMP IVP ONE (11:00)
[2017-10-24] MEDS ORDERED: MEPERIDINE (DEMEROL) INJ 50 MG/ML IVP ONE (11:00)
[2017-10-24] MEDS ORDERED: morphine INJ 10 MG/ML 1ML (SYR OR VIAL) IVP ONE (11:00)
[2017-10-24] MEDS ORDERED: HYDROmorphone 2 MG/ML VIAL (DILAUDID) IV ONE (11:00)
[2017-10-24 12:00] VITALS: BP 129/65
[2017-10-24 12:30] VITALS: BP 129/73
[2017-10-24 13:00] VITALS: BP 130/75
--- NOTE | 2017-10-24 14:01 | Anesthesia-General Post-Op ---
General Patient Condition Mental Status/LOC: Same as Preop Cardiovascular: Satisfactory Nausea/Vomiting: Absent Respiratory: Satisfactory Pain: Controlled Complications: Absent Post Op Complications Complications None Follow Up Care/Instructions Patient Instructions None needed. Anesthesia/Patient Condition Patient Condition Patient is doing well, no complaints, stable vital signs, no apparent adverse anesthesia problems. No complications reported per nursing. MAK COHN CRNA Oct 24, 2017 14:01
[2017-10-24 14:15] VITALS: BP 130/75
--- NOTE | 2017-10-24 15:28 | OPERATIVE REPORT ---
DATE OF SERVICE: 10/24/2017 PREOPERATIVE DIAGNOSES: 1. A 22-year-old female with abnormal uterine bleeding. 2. Chronic pelvic pain. 3. IUD. POSTOPERATIVE DIAGNOSES: 1. A 22-year-old female with abnormal uterine bleeding. 2. Chronic pelvic pain. 3. IUD. PROCEDURES: Diagnostic laparoscopy with removal of IUD and dilatation and curettage. SURGEON: Deonte Helton DO ANESTHESIA: General endotracheal. ESTIMATED BLOOD LOSS: Minimal. URINE OUTPUT: 120 mL clear at the end of the procedure. FLUIDS: 1100 mL lactate Ringer's solution. FINDINGS: A grossly normal appearing uterus, bilateral fallopian tubes and ovaries. A moderate to large amount of endometrial tissue collected for pathology. A normal appearing IUD, which was easily removed. SPECIMENS SENT: Endometrial curettings. INDICATION FOR PROCEDURE: This 22-year-old female is a patient who I had seen in my office for the past 2-1/2 years. Initially, she was not having regular cycles and when she did have cycles, they were very heavy. She has a history of morbid obesity with a BMI of 47. We discussed Mirena IUD placement. We underwent this and for the first year to year and half, she had no bleeding, no pain and no concerns. She was doing very well and on her way as far as losing weight. In the past two to three months, the patient has had significant increase in pain and discomfort to the point she cannot have intercourse and she has had significant amounts of bleeding in the past two to three months. Ultrasound revealed no abnormal findings. STD testing as well as infectious disease testing and pelvic examination did not reveal any kind of abnormal findings. I discussed with the patient the possibility for ovarian cyst or endometriosis, which may or may not show up on pelvic ultrasound. Due to her worsening pain despite all of these conservative measures, the patient wished to proceed with diagnostic laparoscopy to give her answers. We also discussed the possibility of removing her IUD as this could be an underlying cause, but we discussed doing that after I had investigated abnormally to make sure there was nothing else wrong before removing the IUD because that would be a last ditch resort. Risks of the procedure were discussed with the patient in detail including risks of bleeding, infection, damage to surrounding structures including, but not limited to bowel, bladder, ureter, kidneys. Postoperative expectations, recovery time frame, need for blood transfusion, risk from anesthesia and even were all discussed with the patient. After all of her questions were answered with her present, consent was obtained in the preoperative area and the patient was taken to the operating room. OPERATIVE REPORT IN DETAIL: Once in the operating room, general anesthesia was found to be adequate, placed in dorsal lithotomy position, prepped and draped in normal sterile fashion. Jackson catheter was placed using sterile technique and a sponge stick was placed in the patient's vagina. I began by making an infraumbilical incision using a knife 5 mm. I infiltrated the skin using 0.25% Marcaine before making my incision. I then directed Veress needle through the incision until the intraperitoneal placement is confirmed using a saline drop test. I then proceeded with insufflation; however, there was elevated pressure of 16 mmHg. Most likely due to the patient's body habitus and abdominal weight; however, I am unable to confirm intraperitoneal placement and have an adequate intraperitoneal pressure upon insufflating. Therefore, I go into the left upper quadrant, make a puncture wound using the Veress needle at the mid costal line approximately 3 to 4 cm below the subcostal margin. Once the Verres is placed, I am able to confirm intraperitoneal placement confirming using a saline drop test. I then proceeded with insufflation using CO2 gas and opening pressure of 5 mmHg. Then I proceeded to max pressure of 15 mmHg, at which point, I am able to place my 5 mm laparoscopic trocar through my previous incision infraumbilically. I then removed the Veress needle and placed insufflation on to that trocar site. Before removing the Veress needle, I am able to inspect where it was placed. There was no evidence of damage upon entry. I then took my attention to the pelvis after a brief scan of the upper abdominal anatomy appears grossly normal. The patient was placed in steep Trendelenburg. I am able to visualize all the pelvic anatomy as described in my findings above. Grossly normal appearing bilateral ovaries, tubes and uterus were noted. All of the surfaces of the pelvic peritoneum were inspected and there was no evidence of endometriosis or other pathology. I have to place a second 5 mm trocar in order to do this and I copiously irrigated the pelvis using normal saline to ensure and decrease the amount of adhesion formation after surgery. I then released insufflation of the CO2 gas and removed the gas from insufflating and introduced 10 mL of 0.25% Marcaine into the peritoneal cavity. Once insufflation was released, I removed the 5 mm trocars. They were reapproximated using Dermabond. The left upper quadrant puncture jose ramon was reapproximated using Dermabond as well. Band-Aids were placed over these. I then took my attention to the pelvis where a weighted speculum was inserted into the patient's vagina. A right angle retractor was used to visualize the cervix, which was grasped at 12 o'clock position using a long Allis clamp. I then gently sound the uterine cavity depth, which was found to be 7 cm. I also removed the Mirena IUD by grasping the strings and removing it. There was no resistance upon removal of this. I then gently dilated the cervix using Ramila dilators. After a paracervical block was performed at the 3 and 9 o'clock positions on the cervix, care was taken to aspirate before injecting. 5 mL were used at each injection site. Once the Hegar dilators have dilated the cervix to approximately 8 mm, I am able to perform curetting of the endometrium. There was a moderate amount of endometrial tissue and possible polyp formation; however, this was on gross inspection. Final pathology was sent to the lab. After which, there was no active bleeding noted from any of my dissection planes. All the instruments were removed from the patient's vagina. The patient tolerated the procedure well and was sent to recovery in stable condition. Jackson catheter was removed as well. Lap and sponge counts were correct at the end of the procedure and the instrument count was correct as well. Job ID: [id number] DocumentID: [id number] Dictated Date: 10/24/2017 11:04:46 Film Critic Date: 10/24/2017 15:28:11 Dictated By: DEONTE HELTON DO
== END 2017-10-24 14:15 | disposition home or self-care (01) ==
LOC: SDC 08:11
PROVIDERS: ATTEND Obstetrics & Gynecology
DX: N94.6 Dysmenorrhea, unspecified (principal); N92.0 Excessive and frequent menstruation with regular cycle; R10.2 Pelvic and perineal pain; E28.2 Polycystic ovarian syndrome; Z30.432 Encounter for removal of intrauterine contraceptive device; E03.9 Hypothyroidism, unspecified; Z79.899 Other long term (current) drug therapy
CPT/HCPCS: 36415; 84703; 85025; 86850; 86900; 86901; 87081; 88305; 94664